=== PATIENT | male | born 2000 | race Caucasian/White ===

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

== ENCOUNTER 2019-12-19 11:51 | Observation (INO) | payer BC ==
[2019-12-19] MEDS ORDERED: SODIUM CHLORIDE 0.9% 1,000 ML IV ONE ×2 (13:05→14:43)
[2019-12-19] MEDS ORDERED: SODIUM CHLORIDE 0.9% 500 ML 500 ML IV ONE (13:05)
[2019-12-19] MEDS ORDERED: ONDANSETRON 4 MG/2 ML VIAL IVP STA (13:06)
[2019-12-19 13:07] LABS: Appearance,Urine Clear (Clear); Bilirubin,Urine Negative (Negative); Blood,Urine Trace (Negative); Color,Urine Yellow; Glucose,Urine (UA) Negative (Negative); Ketones,Urine Negative (Negative); Leukocyte Esterase,Urine Negative (Negative); Mucus,Urine Few /hpf; Nitrite,Urine Negative (Negative); Protein,Urine Trace (Negative); RBC,Urine 2 /hpf (0-5); Specific Gravity,Urine 1.028 (1.001-1.035); Urobilinogen,Urine <2.0 mg/dL (<2.0); WBC,Urine 2 /hpf (0-5)
[2019-12-19] MEDS ORDERED: SODIUM CHLORIDE 0.9% 1,000 ML IV SCH (13:15)
--- NOTE | 2019-12-19 13:45 | CT ---
EXAMINATION TYPE: CT abdomen pelvis w con DATE OF EXAM: 12/19/2019 COMPARISON: None. HISTORY: Stomach pains and right lower quadrant pain CT DLP: 777 mGycm, Automated Exposure Control for Dose Reduction was Utilized. CONTRAST: CT scan of the abdomen and pelvis is performed without oral but with IV Contrast, patient injected wi th 100 mL of Isovue 300. FINDINGS: LUNG BASES: No significant abnormality is appreciated. LIVER/GB: No significant abnormality is appreciated. PANCREAS: No significant abnormality is seen. SPLEEN: No significant abnormality is seen. ADRENALS: No significant abnormality is seen. KIDNEYS: Symmetric cortical medullary uptake and excretion without hydronephrosis seen bilaterally. BOWEL: Suboptimal evaluation without enteric contrast and patient having little intra-abdominal fat. No suspicious small or large bowel dilatation. Stomach poorly distended and thus suboptimally evaluat ed. There is low lying cecum into the right pelvis. Terminal ileum difficult to visualize with certai nty likely is present coronal image 33 with poor distention and mild to moderate wall thickening and mucosal enhancement. There is right pelvic calcification below this coronal image 40 suspicious for t iny appendicolith. Additional punctate intraluminal calcifications are felt present on sagittal image s. Poor visualization of normal or abnormal appendix on this study. There is suspicious tubular struc ture right pelvis coronal image 44 for reference posteriorly that has mild to moderate wall thickenin g and mucosal enhancement. No suspicious dilatation noted. Minimal fat stranding at this level. PROSTATE/SEMINAL VESICLES: No gross abnormality seen. LYMPH NODES: No greater than 1cm abdominal or pelvic lymph nodes are appreciated. OSSEOUS STRUCTURES: No significant abnormality is seen. OTHER: No significant additional abnormality is seen. IMPRESSION: Suboptimal study. I do favor uncomplicated acute appendicitis right pelvis as detailed ab ove.
[2019-12-19 13:48] LABS: Basophils % (A) 0 %; Eosinophils # (A) 0.1 k/uL (0-0.7); Eosinophils % (A) 1 %; HCT 42.6 % (39.0-53.0); HGB 14.6 gm/dL (13.0-17.5); Lymphocytes # (A) 0.6 k/uL (1.0-4.8); Lymphocytes % (A) 3 %; MCH 30.3 pg (25.0-35.0); MCHC 34.3 g/dL (31.0-37.0); MCV 88.3 fL (80.0-100.0); Mean Platelet Volume 7.6; Monocytes # (A) 0.7 k/uL (0-1.0); Monocytes % (A) 4 %; Neutrophils # (A) 16.3 k/uL (1.3-7.7); Neutrophils % (A) 92 %; Platelet Count 272 k/uL (150-450); RBC 4.83 m/uL (4.30-5.90); RDW 12.4 % (11.5-15.5); WBC 17.8 k/uL (4.0-11.0)
[2019-12-19] MEDS ORDERED: PIPERACILLIN-TAZOBACTAM 3.375 GM in SODIUM CHLORIDE 0.9% 100 ML IVPB STA (13:52)
--- NOTE | 2019-12-19 13:54 | ED ---
Abdominal Pain HPI <Danilo Jacome - Last Filed: 12/19/19 14:06> - General Source: patient Mode of arrival: ambulatory Limitations: no limitations <Fatou Pennington - Last Filed: 12/19/19 14:30> - General Chief Complaint: Abdominal Pain Stated Complaint: vomiting, abd pain Time Seen by Provider: 12/19/19 12:43 - History of Present Illness Initial Comments: 18yo male presented for chief complaint of right lower quadrant abdominal pain vomiting since 6AM. Patient has had vomiting since exam he was complaining of left upper quadrant abdominal pain he went to his physician's office to observed right lower quadrant tenderness on examination. Patient denies right lower quadrant tenderness initially on history taking. Patient had some mild RLQ tenderness, LUQ tenderness. Leukocytosis. CT concerning acute appendicitis. blood culturep ending. zosyn initiated. He has been NPO since 6AM. Surgery consulted Shefali saw patient in the ER and is taking patient to the OR. Patient is agreeable to procedure and admission. Dr. Jacome evaluated patient. (Fatou Pennington) - Related Data Allergies Allergy/AdvReac Type Severity Reaction Status Date / Time No Known Allergies Allergy Verified 12/19/19 12:13 Review of Systems ROS Other: All systems not noted in ROS Statement are negative. <Danilo Jacome - Last Filed: 12/19/19 14:06> ROS Other: All systems not noted in ROS Statement are negative. <Fatou Pennington - Last Filed: 12/19/19 14:30> ROS Statement: Those systems with pertinent positive or pertinent negative responses have been documented in the HPI. Past Medical History Past Medical History: No Reported History History of Any Multi-Drug Resistant Organisms: None Reported Past Surgical History: No Surgical Hx Reported Smoking Status: Never smoker Past Alcohol Use History: None Reported Past Drug Use History: None Reported <Fatou Pennington - Last Filed: 12/19/19 14:30> General Exam Limitations: no limitations <Faotu Pennington - Last Filed: 12/19/19 14:30> Course Vital Signs 12/19/19 12:08 Temperature 97.9 F Pulse Rate 50 L Respiratory 18 Rate Blood Pressure 137/77 O2 Sat by Pulse 100 Oximetry Medical Decision Making - Lab Data Result diagrams: 12/19/19 13:00 12/19/19 13:00 <Danilo Jacome - Last Filed: 12/19/19 14:06> - Lab Data Result diagrams: 12/19/19 13:00 12/19/19 13:00 <Fatou Pennington - Last Filed: 12/19/19 14:30> - Medical Decision Making Patient was reevaluated and reexamined by myself, Dr. Jacome. I do agree with PA findings. This includes diagnostic interpretation and treatment plan. Abdomen with moderate tenderness right lower quadrant. CT report reviewed. Patient and family updated. Case discussed with Dr. Meehan, who will admit for surgical call. (Danilo Jacome) - Lab Data Lab Results 12/19/19 12/19/19 12/19/19 Range/Units 12:44 13:00 13:00 WBC 17.8 H (4.0-11.0) k/uL RBC 4.83 (4.30-5.90) m/uL Hgb 14.6 (13.0-17.5) gm/dL Hct 42.6 (39.0-53.0) % MCV 88.3 (80.0-100.0) fL MCH 30.3 (25.0-35.0) pg MCHC 34.3 (31.0-37.0) g/dL RDW 12.4 (11.5-15.5) % Plt Count 272 (150-450) k/uL Neutrophils % 92 % Lymphocytes % 3 % Monocytes % 4 % Eosinophils % 1 % Basophils % 0 % Neutrophils # 16.3 H (1.3-7.7) k/uL Lymphocytes # 0.6 L (1.0-4.8) k/uL Monocytes # 0.7 (0-1.0) k/uL Eosinophils # 0.1 (0-0.7) k/uL Basophils # 0.0 (0-0.2) k/uL Sodium 139 (137-145) mmol/L Potassium 4.2 (3.5-5.1) mmol/L Chloride 103 (98-107) mmol/L Carbon Dioxide 27 (22-30) mmol/L Anion Gap 9 mmol/L BUN 15 (9-20) mg/dL Creatinine 0.80 (0.66-1.25) mg/dL Est GFR (CKD-EPI)AfAm >90 (>60 ml/min/1.73 sqM) Est GFR (CKD-EPI)NonAf >90 (>60 ml/min/1.73 sqM) Glucose 119 H (74-99) mg/dL Calcium 9.7 (8.4-10.2) mg/dL Total Bilirubin 0.8 (0.2-1.3) mg/dL AST 26 (17-59) U/L ALT 15 (4-49) U/L Alkaline Phosphatase 91 (38-126) U/L Total Protein 8.0 (6.3-8.2) g/dL Albumin 4.9 (3.5-5.0) g/dL Amylase 66 (30-110) U/L Lipase 48 (23-300) U/L Urine Color Yellow Urine Appearance Clear (Clear) Urine pH 6.0 (5.0-8.0) Ur Specific [place] 1.028 (1.001-1.035) Urine Protein Trace H (Negative) Urine Glucose (UA) Negative (Negative) Urine Ketones Negative (Negative) Urine Blood Trace H (Negative) Urine Nitrite Negative (Negative) Urine Bilirubin Negative (Negative) Urine Urobilinogen <2.0 (<2.0) mg/dL Ur Leukocyte Esterase Negative (Negative) Urine RBC 2 (0-5) /hpf Urine WBC 2 (0-5) /hpf Urine Mucus Few H (None) /hpf Disposition <Danilo Jacome - Last Filed: 12/19/19 14:06> Is patient prescribed a controlled substance at d/c from ED?: No Time of Disposition: 13:53 Decision to Admit Reason: Admit from EC Decision Date: 12/19/19 Decision Time: 13:53 <Fatou Pennington - Last Filed: 12/19/19 14:30> Clinical Impression: Abdominal pain, Acute appendicitis Disposition: [facility] Condition: Stable
[2019-12-19] MEDS ORDERED: NALOXONE 0.4 MG/ML 1 ML VIAL IV PRN ×2 (13:58→15:32)
[2019-12-19] MEDS ORDERED: MORPHINE SULFATE 4 MG/ML SYRINGE IV PRN (13:58)
[2019-12-19] MEDS ORDERED: ONDANSETRON 4 MG/2 ML VIAL IVP PRN ×2 (13:58→14:25)
[2019-12-19 14:05] LABS: African American GFR (CKD) >90 (>60 ml/min/1.73 sqM); Albumin 4.9 g/dL (3.5-5.0); Amylase 66 U/L (30-110); Anion Gap 9 mmol/L; Blood Urea Nitrogen 15 mg/dL (9-20); Calcium 9.7 mg/dL (8.4-10.2); Carbon Dioxide 27 mmol/L (22-30); Chloride 103 mmol/L (98-107); Glucose 119 mg/dL (74-99); Non-African American GFR(CKD) >90 (>60 ml/min/1.73 sqM); Potassium 4.2 mmol/L (3.5-5.1); Sodium 139 mmol/L (137-145)
[2019-12-19 14:06] LABS: ALT 15 U/L (4-49); AST 26 U/L (17-59); Alkaline Phosphatase 91 U/L (38-126); Total Bilirubin 0.8 mg/dL (0.2-1.3)
--- NOTE | 2019-12-19 14:19 | P.GSHP ---
History of Present Illness H&P Date: 12/19/19 Chief Complaint: Right lower quadrant pain Is a 18-year-old male who has a 24 hour history of right upper quadrant pain. Patient worked up emergency room was found have appendicitis Past Medical History Past Medical History: No Reported History History of Any Multi-Drug Resistant Organisms: None Reported Past Surgical History: No Surgical Hx Reported Smoking Status: Never smoker Past Alcohol Use History: None Reported Past Drug Use History: None Reported Medications and Allergies Allergies Allergy/AdvReac Type Severity Reaction Status Date / Time No Known Allergies Allergy Verified 12/19/19 12:13 Surgical - Exam Vital Signs Temp Pulse Resp BP Pulse Ox 97.9 F 50 L 18 137/77 100 12/19/19 12:08 12/19/19 12:08 12/19/19 12:08 12/19/19 12:08 12/19/19 12:08 - General well developed, well nourished, no distress - Eyes PERRL - ENT normal pinna - Neck no masses - Respiratory normal expansion - Cardiovascular Rhythm: regular - Abdomen Marked right lower quadrant tenderness Abdomen: soft Results - Labs 12/19/19 13:00 12/19/19 13:00 Abnormal Lab Results - Last 24 Hours (Table) 12/19/19 12/19/19 12/19/19 Range/Units 12:44 13:00 13:00 WBC 17.8 H (4.0-11.0) k/uL Neutrophils # 16.3 H (1.3-7.7) k/uL Lymphocytes # 0.6 L (1.0-4.8) k/uL Glucose 119 H (74-99) mg/dL Urine Protein Trace H (Negative) Urine Blood Trace H (Negative) Urine Mucus Few H (None) /hpf Diabetes panel 12/19/19 Range/Units 13:00 Sodium 139 (137-145) mmol/L Potassium 4.2 (3.5-5.1) mmol/L Chloride 103 (98-107) mmol/L Carbon Dioxide 27 (22-30) mmol/L BUN 15 (9-20) mg/dL Creatinine 0.80 (0.66-1.25) mg/dL Glucose 119 H (74-99) mg/dL Calcium 9.7 (8.4-10.2) mg/dL AST 26 (17-59) U/L ALT 15 (4-49) U/L Alkaline Phosphatase 91 (38-126) U/L Total Protein 8.0 (6.3-8.2) g/dL Albumin 4.9 (3.5-5.0) g/dL Calcium panel 12/19/19 Range/Units 13:00 Calcium 9.7 (8.4-10.2) mg/dL Albumin 4.9 (3.5-5.0) g/dL Pituitary panel 12/19/19 Range/Units 13:00 Sodium 139 (137-145) mmol/L Potassium 4.2 (3.5-5.1) mmol/L Chloride 103 (98-107) mmol/L Carbon Dioxide 27 (22-30) mmol/L BUN 15 (9-20) mg/dL Creatinine 0.80 (0.66-1.25) mg/dL Glucose 119 H (74-99) mg/dL Calcium 9.7 (8.4-10.2) mg/dL Adrenal panel 12/19/19 Range/Units 13:00 Sodium 139 (137-145) mmol/L Potassium 4.2 (3.5-5.1) mmol/L Chloride 103 (98-107) mmol/L Carbon Dioxide 27 (22-30) mmol/L BUN 15 (9-20) mg/dL Creatinine 0.80 (0.66-1.25) mg/dL Glucose 119 H (74-99) mg/dL Calcium 9.7 (8.4-10.2) mg/dL Total Bilirubin 0.8 (0.2-1.3) mg/dL AST 26 (17-59) U/L ALT 15 (4-49) U/L Alkaline Phosphatase 91 (38-126) U/L Total Protein 8.0 (6.3-8.2) g/dL Albumin 4.9 (3.5-5.0) g/dL Assessment and Plan Assessment: Hematemesis. We'll perform laparoscopic appendectomy
[2019-12-19] MEDS ORDERED: ACETAMINOPHEN TAB 325 MG TAB PO PRN (14:24)
[2019-12-19] MEDS ORDERED: GLYCOPYRROLATE 0.2 MG/ML 2 ML VIAL ONE (14:43)
[2019-12-19] MEDS ORDERED: ROCURONIUM BROMIDE 10 MG/ML 5 ML VIAL IV ONE (14:43)
[2019-12-19] MEDS ORDERED: HYDROmorphone (PF) 1 MG/ML ONE (14:43)
[2019-12-19] MEDS ORDERED: HEPARIN SODIUM,PORCINE 5,000 UNIT/ML 1 ML VIAL ONE (14:43)
[2019-12-19] MEDS ORDERED: BUPIVACAIN-EPI 0.25%-1:200,000 30 ML VIAL SQ ONE (14:43)
[2019-12-19] MEDS ORDERED: PROPOFOL 10 MG/ML 20 ML VIAL IV ONE (14:43)
[2019-12-19] MEDS ORDERED: LIDOCAINE 1% INJ 10MG/ML (20 ML MDV) ONE (14:43)
[2019-12-19] MEDS ORDERED: SUCCINYLCHOLINE CHLORIDE 100 MG/5 ML SYR IV ONE (14:43)
[2019-12-19] MEDS ORDERED: fentaNYL (PF) 50 MCG/ML 2 ML AMP ONE (14:43)
[2019-12-19] MEDS ORDERED: NEOSTIGMINE 1 MG/ML 10 ML VIAL ONE (14:43)
[2019-12-19] MEDS ORDERED: MIDAZOLAM 2 MG/2 ML VIAL ONE (14:43)
[2019-12-19] MEDS ORDERED: LACTATED RINGERS 1,000 ML IV ONE ×2 (15:07→16:00)
[2019-12-19] MEDS ORDERED: MEPERIDINE 50 MG/ML SYRINGE IVP ONE ×2 (15:27→15:46)
[2019-12-19] MEDS ORDERED: diphenhydrAMINE 50 MG/ML 1 ML VIAL IVP ONE (15:28)
[2019-12-19] MEDS ORDERED: ONDANSETRON 4 MG/2 ML VIAL IVP ONE (15:28)
[2019-12-19] MEDS ORDERED: HYDROmorphone 0.5 MG/0.5 ML SYRINGE IVP PRN (15:32)
[2019-12-19] MEDS ORDERED: HYDROcodone/APAP 5-325MG 1 EACH TAB PO PRN (15:32)
--- NOTE | 2019-12-19 15:32 | P.OP ---
Date of Procedure: 12/19/19 Preoperative Diagnosis: Acute appendicitis Postoperative Diagnosis: Acute appendicitis Procedure(s) Performed: Laparoscopic appendectomy Anesthesia: ROMELIA Surgeon: Ulysses Meehan Estimated Blood Loss (ml): 10 Pathology: other (Appendix) Condition: stable Disposition: PACU Description of Procedure: HThe patient's placed on the operating table in the supine position. The patient received general anesthesia. The abdomen was prepped and draped in the usual sterile fashion. The skin was anesthetized 1% local Xylocaine at the trocar sites. Using an 11 blade the skin was incised at the umbilicus. The umbilicus was grasped with a [place] clamp and then a Veress needle was placed into the peritoneal cavity. Position of the Veress needle was confirmed with positive drop test. After adequate insufflation a 5 mm trocar was placed into the peritoneal cavity. The abdomen was further insufflated. And then the laparoscope was placed in the peritoneal cavity. Next a 5 mm trocar was placed in the midline suprapubic position. And then a 10 mm trocar was placed in the midline epigastric position. The patient was rotated with the right side up and in Trendelenburg. The appendix was visualized. The appendix appeared to be inflamed. The appendix was grasped and then using the Harmonic scissors the mesoappendix was divided. A PDS Endoloop was then placed around the base of the appendix. And then the appendix was divided using Harmonic scissors. The appendix was placed into an Endo Catch and brought out through the 10 mm trocar site. The abdomen was irrigated. There is no bleeding seen. The trochars withdrawn. The skin was closed interrupted 3-0 Monocryl suture. Dermabond dressing was applied. Patient was sent to recovery room in stable condition.
[2019-12-19] MEDS ORDERED: HYDROmorphone 0.5 MG/0.5 ML SYRINGE IVP ONE ×2 (15:55→16:02)
[2019-12-19] MEDS: HYDROmorphone 0.5 MG/0.5 ML SYRINGE IVP PRN (18:18)
[2019-12-19] MEDS: HYDROcodone/APAP 5-325MG 1 EACH TAB PO PRN (19:41)
[2019-12-19] MEDS: PIPERACILLIN-TAZOBACTAM 3.375 GM in SODIUM CHLORIDE 0.9% 100 ML IVPB SCH (22:48)
[2019-12-20] MEDS: PIPERACILLIN-TAZOBACTAM 3.375 GM in SODIUM CHLORIDE 0.9% 100 ML IVPB SCH ×3 (05:31→21:30)
[2019-12-20] MEDS: HYDROcodone/APAP 5-325MG 1 EACH TAB PO PRN ×2 (05:32→21:30)
[2019-12-20 07:09] LABS: Basophils % (A) 0 %; Eosinophils % (A) 0 %; HCT 38.9 % (39.0-53.0); HGB 12.6 gm/dL (13.0-17.5); Lymphocytes # (A) 2.2 k/uL (1.0-4.8); Lymphocytes % (A) 14 %; MCH 28.9 pg (25.0-35.0); MCHC 32.5 g/dL (31.0-37.0); Mean Platelet Volume 7.5; Monocytes # (A) 0.7 k/uL (0-1.0); Monocytes % (A) 4 %; Neutrophils # (A) 12.4 k/uL (1.3-7.7); Neutrophils % (A) 81 %; Platelet Count 236 k/uL (150-450); RBC 4.37 m/uL (4.30-5.90); RDW 12.6 % (11.5-15.5); WBC 15.4 k/uL (4.0-11.0)
[2019-12-20] MEDS: PANTOPRAZOLE 40 MG/10 ML VIAL IVP SCH (08:30)
[2019-12-20] MEDS: ENOXAPARIN 40 MG/0.4 ML SYRINGE SQ SCH (08:30)
[2019-12-20] MEDS: HYDROmorphone 0.5 MG/0.5 ML SYRINGE IVP PRN (08:42)
--- NOTE | 2019-12-20 10:07 | P.CONS ---
History of Present Illness - Reason for Consult Consult date: 12/20/19 Medical management - History of Present Illness This is a 18-year-old male patient of Dr. Mckeon with past medical history of ADHD, chronic acne. He gives history of waking up yesterday morning with abdominal pain and vomiting. Patient had tenderness in the right lower quadrant and left lower quadrant. He was afebrile and vital signs stable. White count was 17.8 otherwise lab work was unremarkable except for glucose 119. Patient denies any history of diabetes. CAT scan of the abdomen and pelvis with contrast revealed uncomplicated acute appendicitis right pelvis. Patient subsequently was taken to or by Dr. Meehan and underwent laparoscopic appendectomy for acute appendicitis. Patient has not had no postop complications. Pain is well controlled. Patient is tolerating a regular diet with no nausea or vomiting. He is utilizing incentive spirometry. 2500 ML's. Patient is cleared for discharge from medicine. Review Of Systems: Constitutional: No fever, no chills, no night sweats. No weight change. No weakness, fatigue or lethargy. No daytime sleepiness. EENT: No headache. No blurred vision or double vision, no loss of vision. No loss of Hearing, no ringing in the ears, no dizziness. No nasal drainage or congestion. No epistaxis. No sore throat. Lungs: No shortness of breath, cough, no sputum production. No wheezing. Cardiovascular: No chest pain, no lower extremity edema. No palpitations. No paroxysmal nocturnal dyspnea. No orthopnea. No lightheadedness or dizziness. No syncopal episodes. Abdominal: Reports mild abdominal discomfort No nausea, vomiting. No diarrhea. No constipation. No bloody or tarry stools. No loss of appetite. Genitourinary: No dysuria, increased frequency, urgency. No urinary retention. Musculoskeletal: No myalgias. No muscle weakness, no gait dysfunction, no frequent falls. No back pain. No neck pain. Integumentary: No wounds, no lesions. No rash or pruritus. No unusual bruising. No change in hair or nails. Neurologic: No aphasia. No facial droop. No change in mentation. No head injury. No headache. No paralysis. No paresthesia. Psychiatric: No depression. No anxiety. No mood swings. Endocrine: No abnormal blood sugars. No weight change. No excessive sweating or thirst. No cold intolerance. Physical examination Gen: This is a 18-year-old male resting in bed in no acute ditress. HEENT: Head is atraumatic, normocephalic. Pupils equal, round. Sclerae is anicteric. NECK: Supple. No JVD. No lymphadenopathy. No thyromegaly. LUNGS: Clear to auscultation. No wheezes or rhonchi. No intercostal retractions. HEART: Regular rate and rhythm. No murmur. ABDOMEN: Soft. Bowel sounds are present. No masses. Mild generalized tenderness. Puncture site. No signs of infection. No significant drainage or erythema. EXTREMITIES: No pedal edema. No calf tenderness. Dorsalis pedis +2 bilaterally. NEUROLOGICAL: Patient is awake, alert and oriented x3. Cranial nerves 2 through 12 are grossly intact. Assessment and plan 1. Acute appendicitis status post laparoscopic appendectomy. Continue current pain management, incentive spirometry to reduce incidence of atelectasis and hospital-acquired pneumonia, increased activity, tolerating regular diet. 2. History of ADHD, stable. 3. History of acne, stable. 4. DVT prophylaxis. Lovenox. 5. GI prophylaxis. Protonix. 6. COVID-19 infection not present. Patient placed as Observation status. Discharge plan: home Impression and plan of care have been directed as dictated by the signing physician. Mary Floyd nurse practitioner acting as scribe for signing physician. Past Medical History Past Medical History: No Reported History History of Any Multi-Drug Resistant Organisms: None Reported Past Surgical History: No Surgical Hx Reported, Appendectomy Past Anesthesia/Blood Transfusion Reactions: Unable to Obtain Additional Past Anesthesia/Blood Transfusion Reaction / Comm: Pt has never had anesthesia. Smoking Status: Never smoker Additional Past Alcohol Use History / Comment(s): Marijuana or illicit drug use. Patient is a student at [employer], working on a nursing degree. He does not have any children. He is currently working at the [employer] in [place] for summer employment. - Past Family History Father Family Medical History: Diabetes Mellitus Additional Family Medical History / Comment(s): Father is alive at age 49 with history of diabetes. Mother Family Medical History: No Reported History Additional Family Medical History / Comment(s): Mother is alive at age 49 with no major medical problems. Brother(s) Additional Family Medical History / Comment(s): Patient has 1 brother and 1 sister with no major medical problems. Medications and Allergies Home Medications Medication Instructions Recorded Confirmed Type Clindamycin 1% Solution 1 applic TOPICAL BID 12/19/19 12/19/19 History Clindamycin Phosphate [place] 1% 1 applic TOPICAL BID 12/19/19 12/19/19 History Doxycycline Hyclate 100 mg PO DAILY 12/19/19 12/19/19 History Methylphenidate HCl [Concerta] 54 mg PO DAILY 12/19/19 12/19/19 History Allergies Allergy/AdvReac Type Severity Reaction Status Date / Time No Known Allergies Allergy Verified 12/19/19 14:46 Physical Exam Vitals: Vital Signs Temp Pulse Pulse Pulse Resp BP BP 12/20/19 07:00 98.9 F 12/20/19 04:25 99.1 F 77 15 108/55 12/19/19 23:16 98.0 F 68 16 116/62 12/19/19 19:15 98.3 F 72 17 105/70 12/19/19 18:12 115/59 12/19/19 18:00 65 111/53 12/19/19 17:45 83 115/61 12/19/19 17:30 52 L 108/56 12/19/19 17:15 70 108/51 12/19/19 17:01 54 L 16 119/52 12/19/19 16:42 98 F 72 16 12/19/19 16:00 53 L 16 12/19/19 15:45 60 18 12/19/19 15:30 65 18 12/19/19 15:19 97.1 F L 94 18 12/19/19 14:40 98.0 F 56 L 18 130/78 12/19/19 13:30 58 L 20 132/79 12/19/19 12:08 97.9 F 50 L 18 137/77 BP Pulse Ox 12/20/19 07:00 12/20/19 04:25 98 12/19/19 23:16 99 12/19/19 19:15 100 12/19/19 18:12 12/19/19 18:00 12/19/19 17:45 12/19/19 17:30 12/19/19 17:15 12/19/19 17:01 95 12/19/19 16:42 135/50 96 12/19/19 16:00 113/57 100 12/19/19 15:45 127/61 100 12/19/19 15:30 126/61 99 12/19/19 15:19 126/61 97 12/19/19 14:40 98 12/19/19 13:30 98 12/19/19 12:08 100 Intake and Output 12/19/19 12/20/19 12/20/19 22:59 06:59 14:59 Intake Total 1200 240 Output Total 5 Balance 1195 240 Intake: IV 200 Intake, IV Titration 1000 Amount Lactated Ringers 1,000 ml 1000 @ 125 mls/hr IV .Q8H ONE Rx#:[id number] Oral 240 Output: Estimated Blood Loss 5 Other: Voiding Method Toilet # Voids 2 3 Results CBC & Chem 7: 12/20/19 06:36 12/19/19 13:00 Labs: Abnormal Lab Results - Last 24 Hours (Table) 12/19/19 12/19/19 12/19/19 Range/Units 12:44 13:00 13:00 WBC 17.8 H (4.0-11.0) k/uL Hgb (13.0-17.5) gm/dL Hct (39.0-53.0) % Neutrophils # 16.3 H (1.3-7.7) k/uL Lymphocytes # 0.6 L (1.0-4.8) k/uL Glucose 119 H (74-99) mg/dL Urine Protein Trace H (Negative) Urine Blood Trace H (Negative) Urine Mucus Few H (None) /hpf 12/20/19 Range/Units 06:36 WBC 15.4 H (4.0-11.0) k/uL Hgb 12.6 L (13.0-17.5) gm/dL Hct 38.9 L (39.0-53.0) % Neutrophils # 12.4 H (1.3-7.7) k/uL Lymphocytes # (1.0-4.8) k/uL Glucose (74-99) mg/dL Urine Protein (Negative) Urine Blood (Negative) Urine Mucus (None) /hpf
[2019-12-20] MEDS: KETOROLAC 30 MG/ML 1 ML VIAL IVP SCH ×2 (13:28→17:30)
--- NOTE | 2019-12-20 14:33 | P.PN ---
Subjective Progress Note Date: 12/20/19 CHIEF COMPLAINT: Appendicitis HISTORY OF PRESENT ILLNESS: Patient is status post laparoscopic appendectomy. Postoperative day #1. Patient continues to report a lot of pain today. He is tolerating diet. Denies nausea or vomiting. PHYSICAL EXAM: VITAL SIGNS: Reviewed. GENERAL: Well-developed in no acute distress. HEENT: No sclera icterus. Extraocular movements grossly intact. Moist buccal mucosa. Head is atraumatic, normocephalic. ABDOMEN: Soft. Nondistended. Appropriate surgical tenderness. Surgical sites clean dry and intact NEUROLOGIC: Alert and oriented. Cranial nerves II through XII grossly intact. ASSESSMENT: 1. Acute appendicitis PLAN: -Diet as tolerated -Increase activity -Incentive spirometer -Pain control. Continue Dilaudid and [place]. Will add Toradol -Hold discharge today secondary to pain. Anticipate discharge home tomorrow if pain is better controlled Nurse practitioner note has been reviewed by physician. Signing provider agrees with the documented findings, assessment, and plan of care. Objective - Vital Signs Vital signs: Vital Signs Temp 98.2 F 12/20/19 11:57 Pulse 71 12/20/19 11:57 Resp 16 12/20/19 11:57 BP 97/58 12/20/19 11:57 Pulse Ox 99 12/20/19 11:57 Intake & Output 12/19/19 12/20/19 12/20/19 18:59 06:59 18:59 Intake Total 600 1000 240 Output Total 5 Balance 595 1000 240 Weight 83.915 kg Intake: IV 600 Intake, IV Titration 1000 Amount Lactated Ringers 1,000 ml 1000 @ 125 mls/hr IV .Q8H ONE Rx#:[id number] Oral 240 Output: Estimated Blood Loss 5 Other: Voiding Method Toilet Toilet # Voids 3 - Labs CBC & Chem 7: 12/20/19 06:36 12/19/19 13:00 Labs: Abnormal Lab Results - Last 24 Hours (Table) 12/20/19 Range/Units 06:36 WBC 15.4 H (4.0-11.0) k/uL Hgb 12.6 L (13.0-17.5) gm/dL Hct 38.9 L (39.0-53.0) % Neutrophils # 12.4 H (1.3-7.7) k/uL
[2019-12-21] MEDS: KETOROLAC 30 MG/ML 1 ML VIAL IVP SCH ×3 (00:07→11:15)
[2019-12-21 00:54] VITALS: RESP 16
[2019-12-21] MEDS: PIPERACILLIN-TAZOBACTAM 3.375 GM in SODIUM CHLORIDE 0.9% 100 ML IVPB SCH (05:33)
[2019-12-21 07:30] VITALS: BP 116/55; PULSE 74; TEMP 99.2
[2019-12-21] MEDS: PANTOPRAZOLE 40 MG/10 ML VIAL IVP SCH (07:32)
[2019-12-21] MEDS: ENOXAPARIN 40 MG/0.4 ML SYRINGE SQ SCH (07:32)
--- NOTE | 2019-12-21 09:19 | P.PN ---
Subjective Progress Note Date: 12/21/19 This is a 18-year-old male patient of Dr. Mckeon with past medical history of ADHD, chronic acne. He gives history of waking up yesterday morning with abdominal pain and vomiting. Patient had tenderness in the right lower quadrant and left lower quadrant. He was afebrile and vital signs stable. White count was 17.8 otherwise lab work was unremarkable except for glucose 119. Patient denies any history of diabetes. CAT scan of the abdomen and pelvis with contrast revealed uncomplicated acute appendicitis right pelvis. Patient subsequently was taken to or by Dr. Meehan and underwent laparoscopic appendectomy for acute appendicitis. Patient has not had no postop complications. Pain is well controlled. Patient is tolerating a regular diet with no nausea or vomiting. He is utilizing incentive spirometry. 2500 ML's. Patient is cleared for discharge from medicine. 12/20: Patient states that he had difficulty with pain control yesterday but this is much improved this morning. He is tolerating a diet and had a bowel movement. Abdomen remained soft. He has been afebrile, heart rate 74, blood pressure 116/55, pulse ox 97% on room air. Anticipate discharge home after e valuated by Dr. Meehan. Review Of Systems: Constitutional: No fever, no chills, no night sweats. No weight change. No weakness, fatigue or lethargy. No daytime sleepiness. EENT: No headache. No nasal drainage or congestion. No epistaxis. No sore throat. Lungs: No shortness of breath, cough, no sputum production. No wheezing. Cardiovascular: No chest pain, no lower extremity edema. No palpitations. No paroxysmal nocturnal dyspnea. No orthopnea. No lightheadedness or dizziness. No syncopal episodes. Abdominal: Reports mild abdominal discomfort .No nausea, vomiting. No diarrhea. No constipation. No bloody or tarry stools. No loss of appetite. Genitourinary: No dysuria, increased frequency, urgency. No urinary retention. Musculoskeletal: No myalgias. No muscle weakness, no gait dysfunction, no frequent falls. No back pain. No neck pain. Integumentary: No wounds, no lesions. No rash or pruritus. No unusual bruising. No change in hair or nails. Neurologic: No aphasia. No facial droop. No change in mentation. No head injury. No headache. No paralysis. No paresthesia. Psychiatric: No depression. No anxiety. No mood swings. Endocrine: No abnormal blood sugars. No weight change. No excessive sweating or thirst. No cold intolerance. Physical examination Gen: This is a 18-year-old male resting in bed in no acute ditress. HEENT: Head is atraumatic, normocephalic. Pupils equal, round. Sclerae is anicteric. NECK: Supple. No JVD. No lymphadenopathy. No thyromegaly. LUNGS: Clear to auscultation. No wheezes or rhonchi. No intercostal retractions. HEART: Regular rate and rhythm. No murmur. ABDOMEN: Soft. Bowel sounds are present. No masses. Mild generalized tenderness. Puncture sites show no signs of infection. No significant drainage or erythema. EXTREMITIES: No pedal edema. No calf tenderness. Dorsalis pedis +2 bilaterally. NEUROLOGICAL: Patient is awake, alert and oriented x3. Cranial nerves 2 through 12 are grossly intact. Assessment and plan 1. Acute appendicitis status post laparoscopic appendectomy. Continue current pain management, incentive spirometry to reduce incidence of atelectasis and hospital-acquired pneumonia, increased activity, tolerating regular diet. 2. History of ADHD, stable. 3. History of acne, stable. 4. DVT prophylaxis. Lovenox. 5. GI prophylaxis. Protonix. 6. COVID-19 infection not present. Patient placed as Observation status. Discharge plan: home Impression and plan of care have been directed as dictated by the signing physician. Mary Floyd nurse practitioner acting as scribe for signing physician. Objective - Vital Signs Vital signs: Vital Signs Temp 99.2 F 12/21/19 07:29 Pulse 74 12/21/19 07:29 Resp 16 12/21/19 07:29 BP 116/55 12/21/19 07:29 Pulse Ox 97 12/21/19 07:29 Intake & Output 12/20/19 12/21/19 12/21/19 18:59 06:59 18:59 Intake Total 240 1230 Balance 240 1230 Intake: Oral 240 1230 Other: Voiding Method Toilet Toilet # Voids 2 1 - Labs CBC & Chem 7: 12/20/19 06:36 12/19/19 13:00 Labs: Microbiology - Last 24 Hours (Table) 12/19/19 14:30 Blood Culture - Preliminary Blood No Growth after 24 hours
--- NOTE | 2019-12-21 10:35 | P.DS ---
Providers Date of admission: 12/19/19 14:06 Expected date of discharge: 12/21/19 Attending physician: Ulysses Meehan Consults: 12/19/19 14:22 Consult Physician Routine Consulting Provider: Kenji Merino Reason/Comments: medical management Do you want consulting provider notified?: Yes Primary care physician: Monico Mckeon [facility] Course: 18-year-old male who presented to the emergency room with a chief complaint of abdominal pain. Patient was found to have acute appendicitis. He underwent laparoscopic appendectomy. Patient is doing well postoperatively without any immediate complications. His pain is controlled on oral medications. Tolerating diet without nausea or vomiting. Vital signs are stable. He is stable for discharge home today. Please see EMR for further hospital course details. Discharge Diagnosis: 1. Acute appendicitis Nurse practitioner note has been reviewed by physician. Signing provider agrees with the documented findings, assessment, and plan of care. Patient Condition at Discharge: Stable Plan - Discharge Summary Discharge Rx Participant: No New Discharge Prescriptions: No Action Methylphenidate HCl [Concerta] 54 mg PO DAILY Doxycycline Hyclate 100 mg PO DAILY Clindamycin 1% Solution 1 applic TOPICAL BID Clindamycin Phosphate P[place] 1% 1 applic TOPICAL BID Discharge Medication List Clindamycin 1% Solution 1 applic TOPICAL BID 12/19/19 [History] Clindamycin Phosphate [place] 1% 1 applic TOPICAL BID 12/19/19 [History] Doxycycline Hyclate 100 mg PO DAILY 12/19/19 [History] Methylphenidate HCl [Concerta] 54 mg PO DAILY 12/19/19 [History] Follow up Appointment(s)/Referral(s): Monico Mckeon DO [Primary Care Provider] - 1-2 days
== END 2019-12-21 12:00 | disposition home or self-care (01) ==
LOC: EC 11:51 → 1SOBS 14:06
PROVIDERS: ADMIT Surgery; ATTEND Surgery
DX: K35.80 Unspecified acute appendicitis (principal); F90.9 Attention-deficit hyperactivity disorder, unspecified type; L70.9 Acne, unspecified; Z79.2 Long term (current) use of antibiotics; Z79.899 Other long term (current) drug therapy; Z83.3 Family history of diabetes mellitus
CPT/HCPCS: 96374; 99285; 36415; 88304; 80053; 82150; 83690; 85025 ×2; 81001; 87040; 74177; 44970; G0378 ×3; U0003; J2543 ×3; J2250; J2270; J1200; J1644; J2710; J2175; J2405; J2001; J1650 ×2; J3010; J1885 ×2; J1170 ×3; J0330; J2704; C9113 ×2; Q9967

== ENCOUNTER 2019-12-21 17:17 | Inpatient (IN) | payer BC ==
[2019-12-21] MEDS ORDERED: ACETAMINOPHEN TAB 500 MG TAB PO STA (17:38)
[2019-12-21] MEDS ORDERED: SODIUM CHLORIDE 0.9% 1,000 ML IV STA ×2 (17:38)
[2019-12-21] MEDS ORDERED: KETOROLAC 30 MG/ML 1 ML VIAL IVP STA (17:43)
[2019-12-21] MEDS ORDERED: PIPERACILLIN-TAZOBACTAM 3.375 GM in SODIUM CHLORIDE 0.9% 100 ML IVPB STA (17:59)
--- NOTE | 2019-12-21 18:08 | ED ---
Fever HPI <Lonnie Ohara - Last Filed: 12/21/19 19:44> - General Source: patient, RN notes reviewed, old records reviewed Mode of arrival: ambulatory Limitations: no limitations <Jaylyn Marrufo - Last Filed: 12/21/19 19:47> <Lonnie Marc - Last Filed: 12/21/19 22:24> - General Chief Complaint: Fever Stated Complaint: Post op fever Time Seen by Provider: 12/21/19 17:28 - History of Present Illness Initial Comments: Savage is a 18-year-old male presents the emergency department today with com plaints of fever and abdominal pain. Patient is 2 days postoperative for appendectomy by Dr. Gomez. Patient was discharged home this morning. He reports he was playing on the couch resting watching TV when he woke up with a high fever. He did take Motrin prior to arrival. Denies any chest pain or shortness of breath. He states that he did not have a Yepez catheter placed. (Jaylyn Marrufo) - Related Data Home Medications Medication Instructions Recorded Confirmed Clindamycin 1% Solution 1 applic TOPICAL BID 12/19/19 12/21/19 Clindamycin Phosphate Pledgets 1% 1 applic TOPICAL BID 12/19/19 12/21/19 Doxycycline Hyclate 100 mg PO DAILY 12/19/19 12/21/19 Methylphenidate HCl [Concerta] 54 mg PO DAILY 12/19/19 12/21/19 Previous Rx's Medication Instructions Recorded Hydrocodone/Acetaminophen [[place] 1 tab PO Q6HR PRN #10 tab 12/21/19 5-325] Levofloxacin [Levaquin] 750 mg PO DAILY 7 Days #7 tab 12/21/19 metroNIDAZOLE [Flagyl] 500 mg PO TID #21 tab 12/21/19 Allergies Allergy/AdvReac Type Severity Reaction Status Date / Time No Known Allergies Allergy Verified 12/21/19 17:43 Review of Systems ROS Other: All systems not noted in ROS Statement are negative. <Lonnie Ohara - Last Filed: 12/21/19 19:44> ROS Other: All systems not noted in ROS Statement are negative. <Jaylyn Marrufo - Last Filed: 12/21/19 19:47> ROS Other: All systems not noted in ROS Statement are negative. <Lonnie Marc - Last Filed: 12/21/19 22:24> ROS Statement: Those systems with pertinent positive or pertinent negative responses have been documented in the HPI. Past Medical History Past Medical History: No Reported History History of Any Multi-Drug Resistant Organisms: None Reported Past Surgical History: No Surgical Hx Reported, Appendectomy Past Anesthesia/Blood Transfusion Reactions: Unable to Obtain Additional Past Anesthesia/Blood Transfusion Reaction / Comment(s): Pt has never had anesthesia. Past Psychological History: ADD/ADHD Smoking Status: Never smoker Past Alcohol Use History: None Reported Past Drug Use History: None Reported - Past Family History Father Family Medical History: Diabetes Mellitus Additional Family Medical History / Comment(s): Father is alive at age 49 with history of diabetes. Mother Family Medical History: No Reported History Additional Family Medical History / Comment(s): Mother is alive at age 49 with no major medical problems. Brother(s) Additional Family Medical History / Comment(s): Patient has 1 brother and 1 sister with no major medical problems. <Jaylyn Marrufo - Last Filed: 12/21/19 19:47> General Exam Limitations: no limitations General appearance: alert, in no apparent distress Head exam: Present: atraumatic, normocephalic, normal inspection Eye exam: Present: normal appearance, PERRL, EOMI. Absent: scleral icterus, conjunctival injection, periorbital swelling ENT exam: Present: normal exam, mucous membranes moist Neck exam: Present: normal inspection. Absent: tenderness, meningismus, lymphadenopathy Respiratory exam: Present: normal lung sounds bilaterally. Absent: respiratory distress, wheezes, rales, rhonchi, stridor Cardiovascular Exam: Present: regular rate, normal rhythm, normal heart sounds. Absent: systolic murmur, diastolic murmur, rubs, gallop, clicks GI/Abdominal exam: Present: soft, normal bowel sounds, other (Well-appearing midline incision site.). Absent: distended, tenderness, guarding, rebound, rigid Extremities exam: Present: normal inspection, full ROM, normal capillary refill. Absent: tenderness, pedal edema, joint swelling, calf tenderness Back exam: Present: normal inspection Neurological exam: Present: alert, oriented X3, CN II-XII intact Psychiatric exam: Present: normal affect, normal mood Skin exam: Present: warm, dry, intact, normal color. Absent: rash <Jaylyn Marrufo - Last Filed: 12/21/19 19:47> - General Exam Comments Initial Comments: 18-year-old male. Patient appears in moderate discomfort. (Jaylyn Marrufo) Course <Lonnie Ohara - Last Filed: 12/21/19 19:44> <Lonnie Marc - Last Filed: 12/21/19 22:24> Vital Signs 12/21/19 12/21/19 12/21/19 17:21 17:32 19:59 Temperature 102.8 F H 102.8 F H 99.6 F Pulse Rate 102 H 73 Respiratory 20 18 Rate Blood Pressure 102/63 119/73 O2 Sat by Pulse 97 97 Oximetry - Reevaluation(s) Reevaluation #1: 12/21/19 19:[address] Meehan, patient has an improving white blood cell count, stable hemoglobin, CT negative for abscess or inflammatory change. Patient has a negative urine, negative chest x-ray for focal pneumonia. Dr. Meehan recommends discharge with close outpatient follow-up, will see the patient in his office tomorrow. Recommends Flagyl and Levaquin. (Lonnie Ohara) Reevaluation #2: 12/21/19 21:36 The patient was initiated be discharged with follow-up with Dr. Meehan's office tomorrow. Lab reports were obtained however subsequent to that conversation which did show the patient had hypocalcemia hypomagnesemia hypokalemia. After discussion with Dr. Meehan and with Dr. Merino patient will be admitted with replenishment of the above pathology pending on the patient's appendectomy. (Lonnie Marc) Reevaluation #3: 12/21/19 22:24 EKG done patient shows a sinus bradycardia with a sinus arrhythmia the rate was 50. Interval 150 to QRS 90 QT since QTC 4:30/392. No acute ST-T wave changes (Lonnie Marc) Medical Decision Making - Lab Data Result diagrams: 12/21/19 18:31 <Lonnie Ohara - Last Filed: 12/21/19 19:44> - Lab Data Result diagrams: 12/21/19 18:31 - Radiology Data Radiology results: report reviewed <Jaylyn Marrufo - Last Filed: 12/21/19 19:47> - Lab Data Result diagrams: 12/21/19 18:31 12/21/19 19:28 <Lonnie Marc - Last Filed: 12/21/19 22:24> - Medical Decision Making 18-year-old male presents emergency Department today with complaints of a fever 103 2 days post appendectomy. Patient denies any significant pain except mild headache. He does report some postoperative abdominal pain but seems stable since he had a surgery. Is given IV fluids labwork obtained. CBC shows decreased at WBC to 10. CT on pelvis is completed shows no acute intra- abdominal abnormalities relief or fever. Chest x-ray shows no pneumonia. He denies any chest pain or shortness of breath. No lower extremity swelling. I did initially start the Patient on Zosyn and blood cultures were obtained. I discussed case with Dr. Ohara who also examined the Patient. He discussed the Patient case with his surgeon Dr. Meehan. Dr. Meehan wants to start patient on levaquin and flagyl and to follow up with him in the office tomorrow. Given dose in ED. (Jaylyn Marrufo) - Lab Data Lab Results 12/21/19 12/21/19 12/21/19 Range/Units 18:31 18:31 18:31 WBC 10.4 (4.0-11.0) k/uL RBC 3.94 L (4.30-5.90) m/uL Hgb 11.8 L (13.0-17.5) gm/dL Hct 34.2 L (39.0-53.0) % MCV 86.9 (80.0-100.0) fL MCH 30.0 (25.0-35.0) pg MCHC 34.5 (31.0-37.0) g/dL RDW 14.1 (11.5-15.5) % Plt Count 297 (150-450) k/uL Neutrophils % (Manual) 77 % Lymphocytes % (Manual) 16 % Monocytes % (Manual) 7 % Neutrophils # (Manual) 8.01 H (1.3-7.7) k/uL Lymphocytes # (Manual) 1.66 (1.0-4.8) k/uL Monocytes # (Manual) 0.73 (0-1.0) k/uL Nucleated RBCs 0 (0-0) /100 WBC Manual Slide Review Performed Hypochromasia Moderate Poikilocytosis Moderate PT 14.0 H (9.0-12.0) sec INR 1.4 H (<1.2) APTT 38.4 H (22.0-30.0) sec Sodium (137-145) mmol/L Potassium (3.5-5.1) mmol/L Chloride (98-107) mmol/L Carbon Dioxide (22-30) mmol/L Anion Gap mmol/L BUN (9-20) mg/dL Creatinine (0.66-1.25) mg/dL Est GFR (CKD-EPI)AfAm (>60 ml/min/1.73 sqM) Est GFR (CKD-EPI)NonAf (>60 ml/min/1.73 sqM) Glucose (74-99) mg/dL POC Glucose (mg/dL) (75-99) mg/dL POC Glu Director Learning Services ID Plasma Lactic Acid Olivier 0.7 (0.7-2.0) mmol/L Calcium (8.4-10.2) mg/dL Magnesium (1.6-2.3) mg/dL Total Bilirubin (0.2-1.3) mg/dL AST (17-59) U/L ALT (4-49) U/L Alkaline Phosphatase (38-126) U/L Total Protein (6.3-8.2) g/dL Albumin (3.5-5.0) g/dL Urine Color Urine Appearance (Clear) Urine pH (5.0-8.0) Ur Specific [place] (1.001-1.035) Urine Protein (Negative) Urine Glucose (UA) (Negative) Urine Ketones (Negative) Urine Blood (Negative) Urine Nitrite (Negative) Urine Bilirubin (Negative) Urine Urobilinogen (<2.0) mg/dL Ur Leukocyte Esterase (Negative) Urine RBC (0-5) /hpf Urine WBC (0-5) /hpf Urine Mucus (None) /hpf 12/21/19 12/21/19 12/21/19 Range/Units 18:31 18:40 19:28 WBC (4.0-11.0) k/uL RBC (4.30-5.90) m/uL Hgb (13.0-17.5) gm/dL Hct (39.0-53.0) % MCV (80.0-100.0) fL MCH (25.0-35.0) pg MCHC (31.0-37.0) g/dL RDW (11.5-15.5) % Plt Count (150-450) k/uL Neutrophils % (Manual) % Lymphocytes % (Manual) % Monocytes % (Manual) % Neutrophils # (Manual) (1.3-7.7) k/uL Lymphocytes # (Manual) (1.0-4.8) k/uL Monocytes # (Manual) (0-1.0) k/uL Nucleated RBCs (0-0) /100 WBC Manual Slide Review Hypochromasia Poikilocytosis PT (9.0-12.0) sec INR (<1.2) APTT (22.0-30.0) sec Sodium 142 (137-145) mmol/L Potassium 2.3 L* (3.5-5.1) mmol/L Chloride 116 H (98-107) mmol/L Carbon Dioxide 18 L (22-30) mmol/L Anion Gap 8 mmol/L BUN 5 L (9-20) mg/dL Creatinine 0.56 L (0.66-1.25) mg/dL Est GFR (CKD-EPI)AfAm >90 (>60 ml/min/1.73 sqM) Est GFR (CKD-EPI)NonAf >90 (>60 ml/min/1.73 sqM) Glucose 63 L (74-99) mg/dL POC Glucose (mg/dL) (75-99) mg/dL POC Glu Director Learning Services ID Plasma Lactic Acid Olivier (0.7-2.0) mmol/L Calcium 5.7 L* (8.4-10.2) mg/dL Magnesium 1.3 L (1.6-2.3) mg/dL Total Bilirubin 0.7 (0.2-1.3) mg/dL AST 14 L (17-59) U/L ALT 7 (4-49) U/L Alkaline Phosphatase 39 (38-126) U/L Total Protein 4.4 L (6.3-8.2) g/dL Albumin 2.1 L (3.5-5.0) g/dL Urine Color Yellow Urine Appearance Clear (Clear) Urine pH 5.5 (5.0-8.0) Ur Specific [place] 1.013 (1.001-1.035) Urine Protein Trace H (Negative) Urine Glucose (UA) Negative (Negative) Urine Ketones 2+ H (Negative) Urine Blood Small H (Negative) Urine Nitrite Negative (Negative) Urine Bilirubin Negative (Negative) Urine Urobilinogen <2.0 (<2.0) mg/dL Ur Leukocyte Esterase Negative (Negative) Urine RBC 2 (0-5) /hpf Urine WBC 2 (0-5) /hpf Urine Mucus Rare H (None) /hpf 12/21/19 Range/Units 20:25 WBC (4.0-11.0) k/uL RBC (4.30-5.90) m/uL Hgb (13.0-17.5) gm/dL Hct (39.0-53.0) % MCV (80.0-100.0) fL MCH (25.0-35.0) pg MCHC (31.0-37.0) g/dL RDW (11.5-15.5) % Plt Count (150-450) k/uL Neutrophils % (Manual) % Lymphocytes % (Manual) % Monocytes % (Manual) % Neutrophils # (Manual) (1.3-7.7) k/uL Lymphocytes # (Manual) (1.0-4.8) k/uL Monocytes # (Manual) (0-1.0) k/uL Nucleated RBCs (0-0) /100 WBC Manual Slide Review Hypochromasia Poikilocytosis PT (9.0-12.0) sec INR (<1.2) APTT (22.0-30.0) sec Sodium (137-145) mmol/L Potassium (3.5-5.1) mmol/L Chloride (98-107) mmol/L Carbon Dioxide (22-30) mmol/L Anion Gap mmol/L BUN (9-20) mg/dL Creatinine (0.66-1.25) mg/dL Est GFR (CKD-EPI)AfAm (>60 ml/min/1.73 sqM) Est GFR (CKD-EPI)NonAf (>60 ml/min/1.73 sqM) Glucose (74-99) mg/dL POC Glucose (mg/dL) 94 (75-99) mg/dL POC Glu Director Learning Services ID Garrett Michael Plasma Lactic Acid Olivier (0.7-2.0) mmol/L Calcium (8.4-10.2) mg/dL Magnesium (1.6-2.3) mg/dL Total Bilirubin (0.2-1.3) mg/dL AST (17-59) U/L ALT (4-49) U/L Alkaline Phosphatase (38-126) U/L Total Protein (6.3-8.2) g/dL Albumin (3.5-5.0) g/dL Urine Color Urine Appearance (Clear) Urine pH (5.0-8.0) Ur Specific [place] (1.001-1.035) Urine Protein (Negative) Urine Glucose (UA) (Negative) Urine Ketones (Negative) Urine Blood (Negative) Urine Nitrite (Negative) Urine Bilirubin (Negative) Urine Urobilinogen (<2.0) mg/dL Ur Leukocyte Esterase (Negative) Urine RBC (0-5) /hpf Urine WBC (0-5) /hpf Urine Mucus (None) /hpf 12/21/19 18:56 EKG performed at 1837 shows normal sinus rhythm with sinus normal EKG. Ventricular rate of 82 bpm. Intervals 166 most seconds. Frustration is 92 ms. QT QTc is 3:30/394 ms. (Jaylyn Marrufo) - Radiology Data Computed tomography scan shows no acute or new finding to account for patient's symptoms of fever. Chest x-ray shows no acute suspicious infiltrate. (Jaylyn Marrufo) Disposition <Lonnie Ohara - Last Filed: 12/21/19 19:44> Is patient prescribed a controlled substance at d/c from ED?: No Time of Disposition: 19:51 <Jaylyn Marrufo - Last Filed: 12/21/19 19:47> <Lonnie Marc - Last Filed: 12/21/19 22:24> Clinical Impression: Postsurgical fever, Hypocalcemia, Hypokalemia, Hypoalbuminemia Disposition: HOME SELF-CARE Condition: Stable
[2019-12-21 18:51] LABS: Appearance,Urine Clear (Clear); Bilirubin,Urine Negative (Negative); Blood,Urine Small (Negative); Color,Urine Yellow; Glucose,Urine (UA) Negative (Negative); Ketones,Urine 2+ (Negative); Leukocyte Esterase,Urine Negative (Negative); Mucus,Urine Rare /hpf; Nitrite,Urine Negative (Negative); PH, Urine 5.5 (5.0-8.0); Protein,Urine Trace (Negative); RBC,Urine 2 /hpf (0-5); Specific Gravity,Urine 1.013 (1.001-1.035); Urobilinogen,Urine <2.0 mg/dL (<2.0); WBC,Urine 2 /hpf (0-5)
[2019-12-21 19:05] LABS: INR 1.4 (<1.2); Partial Thromboplastin Time 38.4 sec (22.0-30.0)
[2019-12-21 19:09] LABS: HCT 34.2 % (39.0-53.0); HGB 11.8 gm/dL (13.0-17.5); Hypochromasia Moderate; MCHC 34.5 g/dL (31.0-37.0); MCV 86.9 fL (80.0-100.0); Platelet Count 297 k/uL (150-450); Poikilocytosis Moderate; RBC 3.94 m/uL (4.30-5.90); RDW 14.1 % (11.5-15.5); WBC 10.4 k/uL (4.0-11.0)
--- NOTE | 2019-12-21 19:20 | XR ---
EXAMINATION TYPE: XR chest 2V DATE OF EXAM: 12/21/2019 COMPARISON: NONE HISTORY: Fever after appendectomy 2 days ago. TECHNIQUE: Frontal and lateral views of the chest are obtained. FINDINGS: There is no focal air space opacity, pleural effusion, or pneumothorax seen. The cardiac silhouette size is within normal limits. The osseous structures are intact. Small amount of pneumop eritoneum below right hemidiaphragm consistent with recent abdominal surgery noted. IMPRESSION: No suspicious acute infiltrate.
--- NOTE | 2019-12-21 19:24 | CT ---
EXAMINATION TYPE: CT abdomen pelvis w con DATE OF EXAM: 12/21/2019 COMPARISON: CT abdomen and pelvis 2 days ago HISTORY: Appendectomy 2 [address] Fever today. [address] DLP: 825 mGycm, Automated Exposure Control for Dose Reduction was Utilized. CONTRAST: CT scan of the abdomen and pelvis is performed without oral and with IV Contrast, patient injected wi th 100 mL of Isovue 300. FINDINGS: LUNG BASES: New dependent atelectasis in both bases just above diaphragm.. LIVER/GB: No significant abnormality is appreciated. PANCREAS: No significant abnormality is seen. SPLEEN: No significant abnormality is seen. ADRENALS: No significant abnormality is seen. KIDNEYS: No significant abnormality is seen. BOWEL: Suboptimal evaluation of bowel without enteric contrast. No new small lower large bowel dilata tion. Low lying cecum into the right pelvis redemonstrated. Terminal ileum within normal limits coron al image 30. No new definitive well-formed thick-walled fluid collection to suggest drainable abscess . PROSTATE/SEMINAL VESICLES: No gross abnormality seen. LYMPH NODES: No greater than 1cm abdominal or pelvic lymph nodes are appreciated. Stable prominent s ubcentimeter reactive right lower quadrant mesenteric lymph nodes reference coronal image 36. OSSEOUS STRUCTURES: Spine is straightened on the sagittal images. OTHER: Small amount of air and tiny hematoma anterior abdominal wall axial image 36 for reference abo ve the umbilicus. Small amount of pneumoperitoneum anterior to the liver presumed postsurgical. IMPRESSION: No significant new or acute finding is seen to account for patient's clinical symptoms.
[2019-12-21] MEDS ORDERED: LEVOFLOXACIN 750 MG TAB PO STA (19:52)
[2019-12-21] MEDS ORDERED: metroNIDAZOLE 500 MG TAB PO STA (19:52)
[2019-12-21 19:57] LABS: ALT 7 U/L (4-49); AST 14 U/L (17-59); African American GFR (CKD) >90 (>60 ml/min/1.73 sqM); Albumin 2.1 g/dL (3.5-5.0); Alkaline Phosphatase 39 U/L (38-126); Anion Gap 8 mmol/L; Blood Urea Nitrogen 5 mg/dL (9-20); Carbon Dioxide 18 mmol/L (22-30); Chloride 116 mmol/L (98-107); Glucose 63 mg/dL (74-99); Non-African American GFR(CKD) >90 (>60 ml/min/1.73 sqM); Sodium 142 mmol/L (137-145); Total Bilirubin 0.7 mg/dL (0.2-1.3); Total Protein 4.4 g/dL (6.3-8.2)
[2019-12-21 20:08] LABS: Calcium 5.7 mg/dL (8.4-10.2); Potassium 2.3 mmol/L (3.5-5.1)
[2019-12-21] MEDS ORDERED: POTASSIUM CHLORIDE ER 20 MEQ TAB.ER PO STA (20:19)
[2019-12-21 20:27] LABS: Glucose,Whole Blood 94 mg/dL (75-99)
[2019-12-21] MEDS ORDERED: SODIUM CHLORIDE 0.9% 1,000 ML IV ONE (20:33)
[2019-12-21] MEDS ORDERED: Potassium Replacement Protocol 1 EACH MISC MISCELLANE PRN (20:34)
[2019-12-21] MEDS ORDERED: metroNIDAZOLE-NS PMX 500 MG in SALINE 1 100ML.BAG IVPB STA (20:36)
[2019-12-21 20:39] LABS: Lymphocytes # (M) 1.66 k/uL (1.0-4.8); Monocytes # (M) 0.73 k/uL (0-1.0); Neutrophils # (M) 8.01 k/uL (1.3-7.7); Neutrophils % (M) 77 %; Nucleated Red Blood Cells 0 /100 WBC (0-0); Total Cells Counted 100
[2019-12-21] MEDS ORDERED: ONDANSETRON 4 MG/2 ML VIAL IVP PRN (20:54)
[2019-12-21] MEDS ORDERED: NALOXONE 0.4 MG/ML 1 ML VIAL IV PRN (20:54)
[2019-12-21] MEDS ORDERED: IBUPROFEN 400 MG TAB PO PRN (20:54)
[2019-12-21] MEDS ORDERED: KETOROLAC 30 MG/ML 1 ML VIAL IVP PRN (20:54)
[2019-12-21] MEDS ORDERED: ACETAMINOPHEN TAB 325 MG TAB PO PRN (20:54)
[2019-12-21] MEDS ORDERED: MORPHINE SULFATE 4 MG/ML SYRINGE IV PRN (20:54)
--- NOTE | 2019-12-21 20:54 | ED ---
Medical Decision Making - Medical Decision Making Addendum places Patient was initially to be discharged however his chemistry cannot panel was resulted and shows significant electrolyte abnormalities with low potassium and magnesium and albumin. Discussed with Dr. Marc discussed with Dr. Merino. Patient received IV potassium IV magnesium, and we'll replace albumin. Continuing Flagyl and Zosyn. Patient is to be admitted to medicine with consults to Dr. Meehan. - Lab Data Result diagrams: 12/21/19 18:31 12/21/19 19:28 Lab Results 12/21/19 12/21/19 12/21/19 Range/Units 18:31 18:31 18:31 WBC 10.4 (4.0-11.0) k/uL RBC 3.94 L (4.30-5.90) m/uL Hgb 11.8 L (13.0-17.5) gm/dL Hct 34.2 L (39.0-53.0) % MCV 86.9 (80.0-100.0) fL MCH 30.0 (25.0-35.0) pg MCHC 34.5 (31.0-37.0) g/dL RDW 14.1 (11.5-15.5) % Plt Count 297 (150-450) k/uL Neutrophils % (Manual) 77 % Lymphocytes % (Manual) 16 % Monocytes % (Manual) 7 % Neutrophils # (Manual) 8.01 H (1.3-7.7) k/uL Lymphocytes # (Manual) 1.66 (1.0-4.8) k/uL Monocytes # (Manual) 0.73 (0-1.0) k/uL Nucleated RBCs 0 (0-0) /100 WBC Manual Slide Review Performed Hypochromasia Moderate Poikilocytosis Moderate PT 14.0 H (9.0-12.0) sec INR 1.4 H (<1.2) APTT 38.4 H (22.0-30.0) sec Sodium (137-145) mmol/L Potassium (3.5-5.1) mmol/L Chloride (98-107) mmol/L Carbon Dioxide (22-30) mmol/L Anion Gap mmol/L BUN (9-20) mg/dL Creatinine (0.66-1.25) mg/dL Est GFR (CKD-EPI)AfAm (>60 ml/min/1.73 sqM) Est GFR (CKD-EPI)NonAf (>60 ml/min/1.73 sqM) Glucose (74-99) mg/dL POC Glucose (mg/dL) (75-99) mg/dL POC Glu [employer]er ID Plasma Lactic Acid Olivier 0.7 (0.7-2.0) mmol/L Calcium (8.4-10.2) mg/dL Magnesium (1.6-2.3) mg/dL Total Bilirubin (0.2-1.3) mg/dL AST (17-59) U/L ALT (4-49) U/L Alkaline Phosphatase (38-126) U/L Total Protein (6.3-8.2) g/dL Albumin (3.5-5.0) g/dL Urine Color Urine Appearance (Clear) Urine pH (5.0-8.0) Ur Specific [place] (1.001-1.035) Urine Protein (Negative) Urine Glucose (UA) (Negative) Urine Ketones (Negative) Urine Blood (Negative) Urine Nitrite (Negative) Urine Bilirubin (Negative) Urine Urobilinogen (<2.0) mg/dL Ur Leukocyte Esterase (Negative) Urine RBC (0-5) /hpf Urine WBC (0-5) /hpf Urine Mucus (None) /hpf 12/21/19 12/21/19 12/21/19 Range/Units 18:31 18:40 19:28 WBC (4.0-11.0) k/uL RBC (4.30-5.90) m/uL Hgb (13.0-17.5) gm/dL Hct (39.0-53.0) % MCV (80.0-100.0) fL MCH (25.0-35.0) pg MCHC (31.0-37.0) g/dL RDW (11.5-15.5) % Plt Count (150-450) k/uL Neutrophils % (Manual) % Lymphocytes % (Manual) % Monocytes % (Manual) % Neutrophils # (Manual) (1.3-7.7) k/uL Lymphocytes # (Manual) (1.0-4.8) k/uL Monocytes # (Manual) (0-1.0) k/uL Nucleated RBCs (0-0) /100 WBC Manual Slide Review Hypochromasia Poikilocytosis PT (9.0-12.0) sec INR (<1.2) APTT (22.0-30.0) sec Sodium 142 (137-145) mmol/L Potassium 2.3 L* (3.5-5.1) mmol/L Chloride 116 H (98-107) mmol/L Carbon Dioxide 18 L (22-30) mmol/L Anion Gap 8 mmol/L BUN 5 L (9-20) mg/dL Creatinine 0.56 L (0.66-1.25) mg/dL Est GFR (CKD-EPI)AfAm >90 (>60 ml/min/1.73 sqM) Est GFR (CKD-EPI)NonAf >90 (>60 ml/min/1.73 sqM) Glucose 63 L (74-99) mg/dL POC Glucose (mg/dL) (75-99) mg/dL POC Glu [employer] Signal Designer ID Plasma Lactic Acid Olivier (0.7-2.0) mmol/L Calcium 5.7 L* (8.4-10.2) mg/dL Magnesium 1.3 L (1.6-2.3) mg/dL Total Bilirubin 0.7 (0.2-1.3) mg/dL AST 14 L (17-59) U/L ALT 7 (4-49) U/L Alkaline Phosphatase 39 (38-126) U/L Total Protein 4.4 L (6.3-8.2) g/dL Albumin 2.1 L (3.5-5.0) g/dL Urine Color Yellow Urine Appearance Clear (Clear) Urine pH 5.5 (5.0-8.0) Ur Specific [place] 1.013 (1.001-1.035) Urine Protein Trace H (Negative) Urine Glucose (UA) Negative (Negative) Urine Ketones 2+ H (Negative) Urine Blood Small H (Negative) Urine Nitrite Negative (Negative) Urine Bilirubin Negative (Negative) Urine Urobilinogen <2.0 (<2.0) mg/dL Ur Leukocyte Esterase Negative (Negative) Urine RBC 2 (0-5) /hpf Urine WBC 2 (0-5) /hpf Urine Mucus Rare H (None) /hpf 12/21/19 Range/Units 20:25 WBC (4.0-11.0) k/uL RBC (4.30-5.90) m/uL Hgb (13.0-17.5) gm/dL Hct (39.0-53.0) % MCV (80.0-100.0) fL MCH (25.0-35.0) pg MCHC (31.0-37.0) g/dL RDW (11.5-15.5) % Plt Count (150-450) k/uL Neutrophils % (Manual) % Lymphocytes % (Manual) % Monocytes % (Manual) % Neutrophils # (Manual) (1.3-7.7) k/uL Lymphocytes # (Manual) (1.0-4.8) k/uL Monocytes # (Manual) (0-1.0) k/uL Nucleated RBCs (0-0) /100 WBC Manual Slide Review Hypochromasia Poikilocytosis PT (9.0-12.0) sec INR (<1.2) APTT (22.0-30.0) sec Sodium (137-145) mmol/L Potassium (3.5-5.1) mmol/L Chloride (98-107) mmol/L Carbon Dioxide (22-30) mmol/L Anion Gap mmol/L BUN (9-20) mg/dL Creatinine (0.66-1.25) mg/dL Est GFR (CKD-EPI)AfAm (>60 ml/min/1.73 sqM) Est GFR (CKD-EPI)NonAf (>60 ml/min/1.73 sqM) Glucose (74-99) mg/dL POC Glucose (mg/dL) 94 (75-99) mg/dL POC Glu Rail Signal Designer ID Garrett Michael Plasma Lactic Acid Olivier (0.7-2.0) mmol/L Calcium (8.4-10.2) mg/dL Magnesium (1.6-2.3) mg/dL Total Bilirubin (0.2-1.3) mg/dL AST (17-59) U/L ALT (4-49) U/L Alkaline Phosphatase (38-126) U/L Total Protein (6.3-8.2) g/dL Albumin (3.5-5.0) g/dL Urine Color Urine Appearance (Clear) Urine pH (5.0-8.0) Ur Specific [place] (1.001-1.035) Urine Protein (Negative) Urine Glucose (UA) (Negative) Urine Ketones (Negative) Urine Blood (Negative) Urine Nitrite (Negative) Urine Bilirubin (Negative) Urine Urobilinogen (<2.0) mg/dL Ur Leukocyte Esterase (Negative) Urine RBC (0-5) /hpf Urine WBC (0-5) /hpf Urine Mucus (None) /hpf Critical Care Time Critical Care Time: Yes Total Critical Care Time: 35 Disposition Clinical Impression: Postsurgical fever, Hypocalcemia, Hypokalemia, Hypoalbuminemia Disposition: HOME SELF-CARE Condition: Stable Instructions (If sedation given, give patient instructions): Fever in Adults (ED) Additional Instructions: Alternate between Motrin and Tylenol every 4- 6 hours. Follow-up with Dr. Meehan in the office tomorrow. Take the Levaquin and Flagyl as prescribed. Return to emergency department if any alarming signs or symptoms occur. Prescriptions: metroNIDAZOLE [Flagyl] 500 mg PO TID #21 tab Levofloxacin [Levaquin] 750 mg PO DAILY 7 Days #7 tab Is patient prescribed a controlled substance at d/c from ED?: No Referrals: Monico Mckeon DO [Primary Care Provider] - 1-2 days Ulysses Meehan MD [STAFF PHYSICIAN] - 1-2 days Time of Disposition: 20:53
[2019-12-21] MEDS: MAGNESIUM SULFATE-D5W PMX 1 GM in DEXTROSE/WATER 1 100ML.BAG IVPB SCH ×2 (20:56→22:01)
[2019-12-21] MEDS: POTASSIUM CHLORIDE 10 MEQ in WATER FOR INJECTION 1 100ML.BAG IVPB SCH ×2 (20:56→23:13)
[2019-12-21] MEDS: ALBUMIN HUMAN 25% 50 ML in EMPTY BAG 1 BAG IVPB SCH ×2 (22:16→23:03)
[2019-12-22] MEDS: POTASSIUM CHLORIDE 10 MEQ in WATER FOR INJECTION 1 100ML.BAG IVPB SCH ×3 (02:24→05:27)
[2019-12-22] MEDS ORDERED: PIPERACILLIN-TAZOBACTAM 3.375 GM in SODIUM CHLORIDE 0.9% 100 ML IVPB SCH (03:00)
[2019-12-22 05:58] LABS: Appearance,Urine Clear (Clear); Bilirubin,Urine Negative (Negative); Blood,Urine Trace (Negative); Color,Urine Light Yellow; Glucose,Urine (UA) Negative (Negative); Ketones,Urine Negative (Negative); Leukocyte Esterase,Urine Negative (Negative); Mucus,Urine Rare /hpf; Nitrite,Urine Negative (Negative); Protein,Urine Negative (Negative); RBC,Urine 3 /hpf (0-5); Specific Gravity,Urine 1.009 (1.001-1.035); Urobilinogen,Urine <2.0 mg/dL (<2.0); WBC,Urine <1 /hpf (0-5)
[2019-12-22 06:08] LABS: ALT 12 U/L (4-49); AST 20 U/L (17-59); African American GFR (CKD) >90 (>60 ml/min/1.73 sqM); Alkaline Phosphatase 68 U/L (38-126); Anion Gap 8 mmol/L; Blood Urea Nitrogen 6 mg/dL (9-20); Calcium 8.8 mg/dL (8.4-10.2); Carbon Dioxide 28 mmol/L (22-30); Chloride 105 mmol/L (98-107); Glucose 103 mg/dL (74-99); Magnesium 2.3 mg/dL (1.6-2.3); Non-African American GFR(CKD) >90 (>60 ml/min/1.73 sqM); Potassium 3.8 mmol/L (3.5-5.1); Sodium 141 mmol/L (137-145); Total Bilirubin 1.2 mg/dL (0.2-1.3)
--- NOTE | 2019-12-22 07:56 | P.GSHP ---
History of Present Illness H&P Date: 12/22/19 Chief Complaint: Postoperative fever The 19-year-old male who underwent recent laparoscopic appendectomy. Patient had a fever of 102 at home last night. Patient was admitted through the emergency room last night. He is noted to be hypocalcemic. He states he feels better today. He's been afebrile overnight Past Medical History Past Medical History: No Reported History History of Any Multi-Drug Resistant Organisms: None Reported Past Surgical History: No Surgical Hx Reported, Appendectomy Past Anesthesia/Blood Transfusion Reactions: Unable to Obtain Additional Past Anesthesia/Blood Transfusion Reaction / Comment(s): Pt has never had anesthesia. Past Psychological History: ADD/ADHD Additional Psychological History / Comment(s): Pt resides with his parents. He is independent. Smoking Status: Never smoker Past Alcohol Use History: None Reported Additional Past Alcohol Use History / Comment(s): No Marijuana or illicit drug use. Patient is a student at [employer], working on a nursing degree. He does not have any children. He is currently working at the [employer] for summer employment. Past Drug Use History: None Reported - Past Family History Father Family Medical History: Diabetes Mellitus Additional Family Medical History / Comment(s): Father is alive at age 49 with h istory of diabetes. Mother Family Medical History: No Reported History Additional Family Medical History / Comment(s): Mother is alive at age 49 with no major medical problems. Brother(s) Additional Family Medical History / Comment(s): Patient has 1 brother and 1 sister with no major medical problems. Medications and Allergies Home Medications Medication Instructions Recorded Confirmed Type Clindamycin 1% Solution 1 applic TOPICAL BID 12/19/19 12/21/19 History Clindamycin Phosphate [place] 1% 1 applic TOPICAL BID 12/19/19 12/21/19 History Doxycycline Hyclate 100 mg PO DAILY 12/19/19 12/21/19 History Methylphenidate HCl [[place]] 54 mg PO DAILY 12/19/19 12/21/19 History Hydrocodone/Acetaminophen [[place] 1 tab PO Q6HR PRN #10 tab 12/21/19 12/21/19 Rx 5-325] Levofloxacin [Levaquin] 750 mg PO DAILY 7 Days #7 tab 12/21/19 Rx metroNIDAZOLE [Flagyl] 500 mg PO TID #21 tab 12/21/19 Rx Allergies Allergy/AdvReac Type Severity Reaction Status Date / Time No Known Allergies Allergy Verified 12/21/19 17:43 Surgical - Exam Vital Signs Temp Pulse Resp BP Pulse Ox 102.8 F H 102 H 20 102/63 97 12/21/19 17:21 12/21/19 17:21 12/21/19 17:21 12/21/19 17:21 12/21/19 17:21 - General well developed, well nourished, no distress - Eyes PERRL - ENT normal pinna - Neck no masses - Respiratory normal expansion - Cardiovascular Rhythm: regular - Abdomen Incisions are clean dry intact Abdomen: soft, non tender Results - Labs 12/21/19 18:31 12/22/19 05:41 Abnormal Lab Results - Last 24 Hours (Table) 12/21/19 12/21/19 12/21/19 Range/Units 18:31 18:31 18:31 RBC 3.94 L (4.30-5.90) m/uL Hgb 11.8 L (13.0-17.5) gm/dL Hct 34.2 L (39.0-53.0) % Neutrophils # (Manual) 8.01 H (1.3-7.7) k/uL PT 14.0 H (9.0-12.0) sec INR 1.4 H (<1.2) APTT 38.4 H (22.0-30.0) sec Potassium (3.5-5.1) mmol/L Chloride (98-107) mmol/L Carbon Dioxide (22-30) mmol/L BUN (9-20) mg/dL Creatinine (0.66-1.25) mg/dL Glucose (74-99) mg/dL Calcium (8.4-10.2) mg/dL Magnesium 1.3 L (1.6-2.3) mg/dL AST (17-59) U/L Total Protein (6.3-8.2) g/dL Albumin (3.5-5.0) g/dL Urine Protein (Negative) Urine Ketones (Negative) Urine Blood (Negative) Urine Mucus (None) /hpf 12/21/19 12/21/19 12/22/19 Range/Units 18:40 19:28 05:00 RBC (4.30-5.90) m/uL Hgb (13.0-17.5) gm/dL Hct (39.0-53.0) % Neutrophils # (Manual) (1.3-7.7) k/uL PT (9.0-12.0) sec INR (<1.2) APTT (22.0-30.0) sec Potassium 2.3 L* (3.5-5.1) mmol/L Chloride 116 H (98-107) mmol/L Carbon Dioxide 18 L (22-30) mmol/L BUN 5 L (9-20) mg/dL Creatinine 0.56 L (0.66-1.25) mg/dL Glucose 63 L (74-99) mg/dL Calcium 5.7 L* (8.4-10.2) mg/dL Magnesium (1.6-2.3) mg/dL AST 14 L (17-59) U/L Total Protein 4.4 L (6.3-8.2) g/dL Albumin 2.1 L (3.5-5.0) g/dL Urine Protein Trace H (Negative) Urine Ketones 2+ H (Negative) Urine Blood Small H Trace H (Negative) Urine Mucus Rare H Rare H (None) /hpf 12/22/19 Range/Units 05:41 RBC (4.30-5.90) m/uL Hgb (13.0-17.5) gm/dL Hct (39.0-53.0) % Neutrophils # (Manual) (1.3-7.7) k/uL PT (9.0-12.0) sec INR (<1.2) APTT (22.0-30.0) sec Potassium (3.5-5.1) mmol/L Chloride (98-107) mmol/L Carbon Dioxide (22-30) mmol/L BUN 6 L (9-20) mg/dL Creatinine (0.66-1.25) mg/dL Glucose 103 H (74-99) mg/dL Calcium (8.4-10.2) mg/dL Magnesium (1.6-2.3) mg/dL AST (17-59) U/L Total Protein (6.3-8.2) g/dL Albumin (3.5-5.0) g/dL Urine Protein (Negative) Urine Ketones (Negative) Urine Blood (Negative) Urine Mucus (None) /hpf Diabetes panel 12/21/19 12/22/19 Range/Units 19:28 05:41 Sodium 142 141 (137-145) mmol/L Potassium 2.3 L* 3.8 (3.5-5.1) mmol/L Chloride 116 H 105 (98-107) mmol/L Carbon Dioxide 18 L 28 (22-30) mmol/L BUN 5 L 6 L (9-20) mg/dL Creatinine 0.56 L 0.86 (0.66-1.25) mg/dL Glucose 63 L 103 H (74-99) mg/dL Calcium 5.7 L* 8.8 (8.4-10.2) mg/dL AST 14 L 20 (17-59) U/L ALT 7 12 (4-49) U/L Alkaline Phosphatase 39 68 (38-126) U/L Total Protein 4.4 L 7.0 (6.3-8.2) g/dL Albumin 2.1 L 4.0 (3.5-5.0) g/dL Calcium panel 12/21/19 12/22/19 Range/Units 19:28 05:41 Calcium 5.7 L* 8.8 (8.4-10.2) mg/dL Albumin 2.1 L 4.0 (3.5-5.0) g/dL Pituitary panel 12/21/19 12/22/19 Range/Units 19:28 05:41 Sodium 142 141 (137-145) mmol/L Potassium 2.3 L* 3.8 (3.5-5.1) mmol/L Chloride 116 H 105 (98-107) mmol/L Carbon Dioxide 18 L 28 (22-30) mmol/L BUN 5 L 6 L (9-20) mg/dL Creatinine 0.56 L 0.86 (0.66-1.25) mg/dL Glucose 63 L 103 H (74-99) mg/dL Calcium 5.7 L* 8.8 (8.4-10.2) mg/dL Adrenal panel 12/21/19 12/22/19 Range/Units 19:28 05:41 Sodium 142 141 (137-145) mmol/L Potassium 2.3 L* 3.8 (3.5-5.1) mmol/L Chloride 116 H 105 (98-107) mmol/L Carbon Dioxide 18 L 28 (22-30) mmol/L BUN 5 L 6 L (9-20) mg/dL Creatinine 0.56 L 0.86 (0.66-1.25) mg/dL Glucose 63 L 103 H (74-99) mg/dL Calcium 5.7 L* 8.8 (8.4-10.2) mg/dL Total Bilirubin 0.7 1.2 (0.2-1.3) mg/dL AST 14 L 20 (17-59) U/L ALT 7 12 (4-49) U/L Alkaline Phosphatase 39 68 (38-126) U/L Total Protein 4.4 L 7.0 (6.3-8.2) g/dL Albumin 2.1 L 4.0 (3.5-5.0) g/dL Assessment and Plan Assessment: Postoperative fever Status post laparoscopic appendectomy. Patient will continue receive IV antibiotics. He'll be observed today.
[2019-12-22 08:34] VITALS: BP 116/57; PULSE 76; RESP 16; TEMP 99.3
[2019-12-22] MEDS ORDERED: PANTOPRAZOLE 40 MG/10 ML VIAL IV SCH (09:00)
--- NOTE | 2019-12-22 10:01 | P.GSCN ---
History of Present Illness Consult date: 12/22/19 History of present illness: Chief Complaint: Postoperative fever The 19-year-old male who underwent recent laparoscopic appendectomy. Patient h ad a fever of 102 at home last night. Patient was admitted through the emergency room last night. He is noted to be hypocalcemic. He states he feels better today. He's been afebrile overnight Past Medical History Past Medical History: No Reported History History of Any Multi-Drug Resistant Organisms: None Reported Past Surgical History: No Surgical Hx Reported, Appendectomy Past Anesthesia/Blood Transfusion Reactions: Unable to Obtain Additional Past Anesthesia/Blood Transfusion Reaction / Comment(s): Pt has never had anesthesia. Past Psychological History: ADD/ADHD Additional Psychological History / Comment(s): Pt resides with his parents. He is independent. Smoking Status: Never smoker Past Alcohol Use History: None Reported Additional Past Alcohol Use History / Comment(s): No Marijuana or illicit drug use. Patient is a student at [employer], working on a nursing degree. He does not have any children. He is currently working at the [employer] for summer employment. Past Drug Use History: None Reported - Past Family History Father Family Medical History: Diabetes Mellitus Additional Family Medical History / Comment(s): Father is alive at age 49 with history of diabetes. Mother Family Medical History: No Reported History Additional Family Medical History / Comment(s): Mother is alive at age 49 with no major medical problems. Brother(s) Additional Family Medical History / Comment(s): Patient has 1 brother and 1 sister with no major medical problems. Medications and Allergies Home Medications Medication Instructions Recorded Confirmed Type Clindamycin 1% Solution 1 applic TOPICAL BID 12/19/19 12/21/19 History Clindamycin Phosphate [place] 1% 1 applic TOPICAL BID 12/19/19 12/21/19 History Doxycycline Hyclate 100 mg PO DAILY 12/19/19 12/21/19 History Methylphenidate HCl [Concerta] 54 mg PO DAILY 12/19/19 12/21/19 History Hydrocodone/Acetaminophen [[place] 1 tab PO Q6HR PRN #10 tab 12/21/19 12/21/19 Rx 5-325] Levofloxacin [Levaquin] 750 mg PO DAILY 7 Days #7 tab 12/21/19 Rx metroNIDAZOLE [Flagyl] 500 mg PO TID #21 tab 12/21/19 Rx Allergies Allergy/AdvReac Type Severity Reaction Status Date / Time No Known Allergies Allergy Verified 12/21/19 17:43 Surgical - Exam Vital Signs Temp Pulse Resp BP Pulse Ox 102.8 F H 102 H 20 102/63 97 12/21/19 17:21 12/21/19 17:21 12/21/19 17:21 12/21/19 17:21 12/21/19 17:21 - General well developed, well nourished, no distress - Eyes PERRL - ENT normal pinna - Neck no masses - Respiratory normal expansion - Cardiovascular Rhythm: regular - Abdomen Incisions are clean dry intact Abdomen: soft, non tender Results - Labs 12/21/19 18:31 12/22/19 05:41 Abnormal Lab Results - Last 24 Hours (Table) 12/21/19 12/21/19 12/21/19 Range/Units 18:31 18:31 18:31 RBC 3.94 L (4.30-5.90) m/uL Hgb 11.8 L (13.0-17.5) gm/dL Hct 34.2 L (39.0-53.0) % Neutrophils # (Manual) 8.01 H (1.3-7.7) k/uL PT 14.0 H (9.0-12.0) sec INR 1.4 H (<1.2) APTT 38.4 H (22.0-30.0) sec Potassium (3.5-5.1) mmol/L Chloride (98-107) mmol/L Carbon Dioxide (22-30) mmol/L BUN (9-20) mg/dL Creatinine (0.66-1.25) mg/dL Glucose (74-99) mg/dL Calcium (8.4-10.2) mg/dL Magnesium 1.3 L (1.6-2.3) mg/dL AST (17-59) U/L Total Protein (6.3-8.2) g/dL Albumin (3.5-5.0) g/dL Urine Protein (Negative) Urine Ketones (Negative) Urine Blood (Negative) Urine Mucus (None) /hpf 12/21/19 12/21/19 12/22/19 Range/Units 18:40 19:28 05:00 RBC (4.30-5.90) m/uL Hgb (13.0-17.5) gm/dL Hct (39.0-53.0) % Neutrophils # (Manual) (1.3-7.7) k/uL PT (9.0-12.0) sec INR (<1.2) APTT (22.0-30.0) sec Potassium 2.3 L* (3.5-5.1) mmol/L Chloride 116 H (98-107) mmol/L Carbon Dioxide 18 L (22-30) mmol/L BUN 5 L (9-20) mg/dL Creatinine 0.56 L (0.66-1.25) mg/dL Glucose 63 L (74-99) mg/dL Calcium 5.7 L* (8.4-10.2) mg/dL Magnesium (1.6-2.3) mg/dL AST 14 L (17-59) U/L Total Protein 4.4 L (6.3-8.2) g/dL Albumin 2.1 L (3.5-5.0) g/dL Urine Protein Trace H (Negative) Urine Ketones 2+ H (Negative) Urine Blood Small H Trace H (Negative) Urine Mucus Rare H Rare H (None) /hpf 12/22/19 Range/Units 05:41 RBC (4.30-5.90) m/uL Hgb (13.0-17.5) gm/dL Hct (39.0-53.0) % Neutrophils # (Manual) (1.3-7.7) k/uL PT (9.0-12.0) sec INR (<1.2) APTT (22.0-30.0) sec Potassium (3.5-5.1) mmol/L Chloride (98-107) mmol/L Carbon Dioxide (22-30) mmol/L BUN 6 L (9-20) mg/dL Creatinine (0.66-1.25) mg/dL Glucose 103 H (74-99) mg/dL Calcium (8.4-10.2) mg/dL Magnesium (1.6-2.3) mg/dL AST (17-59) U/L Total Protein (6.3-8.2) g/dL Albumin (3.5-5.0) g/dL Urine Protein (Negative) Urine Ketones (Negative) Urine Blood (Negative) Urine Mucus (None) /hpf Diabetes panel 12/21/19 12/22/19 Range/Units 19:28 05:41 Sodium 142 141 (137-145) mmol/L Potassium 2.3 L* 3.8 (3.5-5.1) mmol/L Chloride 116 H 105 (98-107) mmol/L Carbon Dioxide 18 L 28 (22-30) mmol/L BUN 5 L 6 L (9-20) mg/dL Creatinine 0.56 L 0.86 (0.66-1.25) mg/dL Glucose 63 L 103 H (74-99) mg/dL Calcium 5.7 L* 8.8 (8.4-10.2) mg/dL AST 14 L 20 (17-59) U/L ALT 7 12 (4-49) U/L Alkaline Phosphatase 39 68 (38-126) U/L Total Protein 4.4 L 7.0 (6.3-8.2) g/dL Albumin 2.1 L 4.0 (3.5-5.0) g/dL Calcium panel 12/21/19 12/22/19 Range/Units 19:28 05:41 Calcium 5.7 L* 8.8 (8.4-10.2) mg/dL Albumin 2.1 L 4.0 (3.5-5.0) g/dL Pituitary panel 12/21/19 12/22/19 Range/Units 19:28 05:41 Sodium 142 141 (137-145) mmol/L Potassium 2.3 L* 3.8 (3.5-5.1) mmol/L Chloride 116 H 105 (98-107) mmol/L Carbon Dioxide 18 L 28 (22-30) mmol/L BUN 5 L 6 L (9-20) mg/dL Creatinine 0.56 L 0.86 (0.66-1.25) mg/dL Glucose 63 L 103 H (74-99) mg/dL Calcium 5.7 L* 8.8 (8.4-10.2) mg/dL Adrenal panel 12/21/19 12/22/19 Range/Units 19:28 05:41 Sodium 142 141 (137-145) mmol/L Potassium 2.3 L* 3.8 (3.5-5.1) mmol/L Chloride 116 H 105 (98-107) mmol/L Carbon Dioxide 18 L 28 (22-30) mmol/L BUN 5 L 6 L (9-20) mg/dL Creatinine 0.56 L 0.86 (0.66-1.25) mg/dL Glucose 63 L 103 H (74-99) mg/dL Calcium 5.7 L* 8.8 (8.4-10.2) mg/dL Total Bilirubin 0.7 1.2 (0.2-1.3) mg/dL AST 14 L 20 (17-59) U/L ALT 7 12 (4-49) U/L Alkaline Phosphatase 39 68 (38-126) U/L Total Protein 4.4 L 7.0 (6.3-8.2) g/dL Albumin 2.1 L 4.0 (3.5-5.0) g/dL Assessment and Plan Assessment: Postoperative fever Status post laparoscopic appendectomy. Patient will continue receive IV antibiotics. He'll be observed today. Past Medical History Past Medical History: No Reported History History of Any Multi-Drug Resistant Organisms: None Reported Past Surgical History: No Surgical Hx Reported, Appendectomy Past Anesthesia/Blood Transfusion Reactions: Unable to Obtain Additional Past Anesthesia/Blood Transfusion Reaction / Comm: Pt has never had anesthesia. Past Psychological History: ADD/ADHD Additional Psychological History / Comment(s): Pt resides with his parents. He is independent. Smoking Status: Never smoker Past Alcohol Use History: None Reported Additional Past Alcohol Use History / Comment(s): No Marijuana or illicit drug use. Patient is a student at [employer], working on a nursing degree. He does not have any children. He is currently working at the [employer] for summer employment. Past Drug Use History: None Reported - Past Family History Father Family Medical History: Diabetes Mellitus Additional Family Medical History / Comment(s): Father is alive at age 49 with history of diabetes. Mother Family Medical History: No Reported History Additional Family Medical History / Comment(s): Mother is alive at age 49 with no major medical problems. Brother(s) Additional Family Medical History / Comment(s): Patient has 1 brother [address] with no major medical problems. Medications and Allergies Home Medications Medication Instructions Recorded Confirmed Type Clindamycin 1% Solution 1 applic TOPICAL BID 12/19/19 12/21/19 History Clindamycin Phosphate Pledgets 1% 1 applic TOPICAL BID 12/19/19 12/21/19 History Doxycycline Hyclate 100 mg PO DAILY 12/19/19 12/21/19 History Methylphenidate HCl [Concerta] 54 mg PO DAILY 12/19/19 12/21/19 History Hydrocodone/Acetaminophen [[place] 1 tab PO Q6HR PRN #10 tab 12/21/19 12/21/19 Rx 5-325] Levofloxacin [Levaquin] 750 mg PO DAILY 7 Days #7 tab 12/21/19 Rx metroNIDAZOLE [Flagyl] 500 mg PO TID #21 tab 12/21/19 Rx Allergies Allergy/AdvReac Type Severity Reaction Status Date / Time No Known Allergies Allergy Verified 12/21/19 17:43 Surgical - Exam Vital Signs Temp Pulse Resp BP Pulse Ox 102.8 F H 102 H 20 102/63 97 12/21/19 17:21 12/21/19 17:21 12/21/19 17:21 12/21/19 17:21 12/21/19 17:21 Results - Labs 12/21/19 18:31 12/22/19 05:41 Abnormal Lab Results - Last 24 Hours (Table) 12/21/19 12/21/19 12/21/19 Range/Units 18:31 18:31 18:31 RBC 3.94 L (4.30-5.90) m/uL Hgb 11.8 L (13.0-17.5) gm/dL Hct 34.2 L (39.0-53.0) % Neutrophils # (Manual) 8.01 H (1.3-7.7) k/uL PT 14.0 H (9.0-12.0) sec INR 1.4 H (<1.2) APTT 38.4 H (22.0-30.0) sec Potassium (3.5-5.1) mmol/L Chloride (98-107) mmol/L Carbon Dioxide (22-30) mmol/L BUN (9-20) mg/dL Creatinine (0.66-1.25) mg/dL Glucose (74-99) mg/dL Calcium (8.4-10.2) mg/dL Magnesium 1.3 L (1.6-2.3) mg/dL AST (17-59) U/L Total Protein (6.3-8.2) g/dL Albumin (3.5-5.0) g/dL Urine Protein (Negative) Urine Ketones (Negative) Urine Blood (Negative) Urine Mucus (None) /hpf 12/21/19 12/21/19 12/22/19 Range/Units 18:40 19:28 05:00 RBC (4.30-5.90) m/uL Hgb (13.0-17.5) gm/dL Hct (39.0-53.0) % Neutrophils # (Manual) (1.3-7.7) k/uL PT (9.0-12.0) sec INR (<1.2) APTT (22.0-30.0) sec Potassium 2.3 L* (3.5-5.1) mmol/L Chloride 116 H (98-107) mmol/L Carbon Dioxide 18 L (22-30) mmol/L BUN 5 L (9-20) mg/dL Creatinine 0.56 L (0.66-1.25) mg/dL Glucose 63 L (74-99) mg/dL Calcium 5.7 L* (8.4-10.2) mg/dL Magnesium (1.6-2.3) mg/dL AST 14 L (17-59) U/L Total Protein 4.4 L (6.3-8.2) g/dL Albumin 2.1 L (3.5-5.0) g/dL Urine Protein Trace H (Negative) Urine Ketones 2+ H (Negative) Urine Blood Small H Trace H (Negative) Urine Mucus Rare H Rare H (None) /hpf 12/22/19 Range/Units 05:41 RBC (4.30-5.90) m/uL Hgb (13.0-17.5) gm/dL Hct (39.0-53.0) % Neutrophils # (Manual) (1.3-7.7) k/uL PT (9.0-12.0) sec INR (<1.2) APTT (22.0-30.0) sec Potassium (3.5-5.1) mmol/L Chloride (98-107) mmol/L Carbon Dioxide (22-30) mmol/L BUN 6 L (9-20) mg/dL Creatinine (0.66-1.25) mg/dL Glucose 103 H (74-99) mg/dL Calcium (8.4-10.2) mg/dL Magnesium (1.6-2.3) mg/dL AST (17-59) U/L Total Protein (6.3-8.2) g/dL Albumin (3.5-5.0) g/dL Urine Protein (Negative) Urine Ketones (Negative) Urine Blood (Negative) Urine Mucus (None) /hpf Diabetes panel 12/21/19 12/22/19 Range/Units 19:28 05:41 Sodium 142 141 (137-145) mmol/L Potassium 2.3 L* 3.8 (3.5-5.1) mmol/L Chloride 116 H 105 (98-107) mmol/L Carbon Dioxide 18 L 28 (22-30) mmol/L BUN 5 L 6 L (9-20) mg/dL Creatinine 0.56 L 0.86 (0.66-1.25) mg/dL Glucose 63 L 103 H (74-99) mg/dL Calcium 5.7 L* 8.8 (8.4-10.2) mg/dL AST 14 L 20 (17-59) U/L ALT 7 12 (4-49) U/L Alkaline Phosphatase 39 68 (38-126) U/L Total Protein 4.4 L 7.0 (6.3-8.2) g/dL Albumin 2.1 L 4.0 (3.5-5.0) g/dL Calcium panel 12/21/19 12/22/19 Range/Units 19:28 05:41 Calcium 5.7 L* 8.8 (8.4-10.2) mg/dL Albumin 2.1 L 4.0 (3.5-5.0) g/dL Pituitary panel 12/21/19 12/22/19 Range/Units 19:28 05:41 Sodium 142 141 (137-145) mmol/L Potassium 2.3 L* 3.8 (3.5-5.1) mmol/L Chloride 116 H 105 (98-107) mmol/L Carbon Dioxide 18 L 28 (22-30) mmol/L BUN 5 L 6 L (9-20) mg/dL Creatinine 0.56 L 0.86 (0.66-1.25) mg/dL Glucose 63 L 103 H (74-99) mg/dL Calcium 5.7 L* 8.8 (8.4-10.2) mg/dL Adrenal panel 12/21/19 12/22/19 Range/Units 19:28 05:41 Sodium 142 141 (137-145) mmol/L Potassium 2.3 L* 3.8 (3.5-5.1) mmol/L Chloride 116 H 105 (98-107) mmol/L Carbon Dioxide 18 L 28 (22-30) mmol/L BUN 5 L 6 L (9-20) mg/dL Creatinine 0.56 L 0.86 (0.66-1.25) mg/dL Glucose 63 L 103 H (74-99) mg/dL Calcium 5.7 L* 8.8 (8.4-10.2) mg/dL Total Bilirubin 0.7 1.2 (0.2-1.3) mg/dL AST 14 L 20 (17-59) U/L ALT 7 12 (4-49) U/L Alkaline Phosphatase 39 68 (38-126) U/L Total Protein 4.4 L 7.0 (6.3-8.2) g/dL Albumin 2.1 L 4.0 (3.5-5.0) g/dL
--- NOTE | 2019-12-22 14:14 | P.HPIM ---
History of Present Illness H&P Date: 12/22/19 Chief Complaint: fever HISTORY AND PHYSICAL AND DISCHARGE SUMMARY: This is a 18-year-old male patient of Dr. Mckeon with past medical history of ADHD, chronic acne. On December 18, Dr. Meehan performed laparoscopic appendectomy for acute appendicitis. Patient has not had no postop complications. His discharge was delayed by 1 day due to pain control and then was discharged home. Patient return to the emergency center yesterday with complaints of fever and abdominal pain. He denies having any nausea vomiting. At the time of our evaluation. He states he is feeling much better. He states he did not sleep very well because of his IV fluids. He states he didn't feel like eating this morning. After discharge, patient did not obtain antibiotics as they were called into his pharmacy after hours. He did receive prescription for [place] only. Patient presented with fever of 102.8, WBC 10.4, hemoglobin 11.8. Potassium was 2.3, chloride 116, CO2 18, BUN 5 and creatinine 2.56, blood sugar 63. Lactic acid 0.7. Liver function tests normal. Magnesium 1.3. EKG sinus rhythm with no acute changes. CAT scan of the abdomen and pelvis revealed no new or acute finding. Chest x-ray shows no acute process. Urinalysis was cl ear with nitrate and leukoesterase negative. Trace blood. Patient did not have any further documented fevers. Repeat lab work this morning revealed potassium of 3.8, chloride 105, CO2 28, BUN 6 and creatinine 0.86.patient was seen by Dr. Meehan. Patient has been informed the prescriptions for antibiotic should be bleeding at his pharmacy which were sent on last admission. Patient will take those to completion. He has been instructed to hold doxycycline while on Levaquin and Flagyl. Patient will be discharged home today in stable condition. Review Of Systems: Constitutional: Reports fever, no chills, no night sweats. No weight change. No weakness, fatigue or lethargy. No daytime sleepiness. EENT: No headache. No blurred vision or double vision, no loss of vision. No loss of Hearing, no ringing in the ears, no dizziness. No nasal drainage or congestion. No epistaxis. No sore throat. Lungs: No shortness of breath, cough, no sputum production. No wheezing. Cardiovascular: No chest pain, no lower extremity edema. No palpitations. No paroxysmal nocturnal dyspnea. No orthopnea. No lightheadedness or dizziness. No syncopal episodes. Abdominal: Denies abdominal discomfort No nausea, vomiting. No diarrhea. No constipation. No bloody or tarry stools. No loss of appetite. Genitourinary: No dysuria, increased frequency, urgency. No urinary retention. Musculoskeletal: No myalgias. No muscle weakness, no gait dysfunction, no frequent falls. No back pain. No neck pain. Integumentary: No wounds, no lesions. No rash or pruritus. No unusual bruising. No change in hair or nails. Neurologic: No aphasia. No facial droop. No change in mentation. No head injury. No headache. No paralysis. No paresthesia. Psychiatric: No depression. No anxiety. No mood swings. Endocrine: No abnormal blood sugars. No weight change. No excessive sweating or thirst. No cold intolerance. Physical examination Gen: This is a 18-year-old male resting in bed in no acute ditress. HEENT: Head is atraumatic, normocephalic. Pupils equal, round. Sclerae is anicteric. NECK: Supple. No JVD. No lymphadenopathy. No thyromegaly. LUNGS: Clear to auscultation. No wheezes or rhonchi. No intercostal retractions. HEART: Regular rate and rhythm. No murmur. ABDOMEN: Soft. Bowel sounds are present. No masses. No tenderness. Puncture sites have no signs of infection. No significant drainage or erythema. EXTREMITIES: No pedal edema. No calf tenderness. Dorsalis pedis +2 bilaterally. NEUROLOGICAL: Patient is awake, alert and oriented x3. Cranial nerves 2 through 12 are grossly intact. Assessment and plan 1. Fever of unclear etiology. All testing has been negative. Patient will complete course of antibiotics sent to his pharmacy on previous admission. 2. Electrolyte abnormalities with hypokalemia, hypochloremia, hypomagnesemia. Improved. Status post replacement. 3. Metabolic acidosis, resolved with IV fluids. 4. Recent admission for acute appendicitis status post laparoscopic appendectomy. Continue [place] or Tylenol for pain. 5. History of ADHD, stable. 6. History of acne, stable. 7. COVID-19 infection not present. Patient placed as Observation status. Discharge plan: home Discharge Medication List Clindamycin 1% Solution 1 applic TOPICAL BID 12/19/19 [History] Clindamycin Phosphate Pledgets 1% 1 applic TOPICAL BID 12/19/19 [History] Doxycycline Hyclate 100 mg PO DAILY 12/19/19 [History] Methylphenidate HCl [Concerta] 54 mg PO DAILY 12/19/19 [History] Hydrocodone/Acetaminophen [[place] 5-325] 1 tab PO Q6HR PRN #10 tab 12/21/19 [Rx] Levofloxacin [Levaquin] 750 mg PO DAILY 7 Days #7 tab 12/21/19 [Rx] metroNIDAZOLE [Flagyl] 500 mg PO TID #21 tab 12/21/19 [Rx] Impression and plan of care have been directed as dictated by the signing physician. Mary Floyd nurse practitioner acting as scribe for signing physician. Past Medical History Past Medical History: No Reported History History of Any Multi-Drug Resistant Organisms: None Reported Past Surgical History: No Surgical Hx Reported, Appendectomy Past Anesthesia/Blood Transfusion Reactions: Unable to Obtain Additional Past Anesthesia/Blood Transfusion Reaction / Comment(s): Pt has never had anesthesia. Past Psychological History: ADD/ADHD Additional Psychological History / Comment(s): Pt resides with his parents. He is independent. Smoking Status: Never smoker Past Alcohol Use History: None Reported Additional Past Alcohol Use History / Comment(s): No Marijuana or illicit drug use. Patient is a student at [employer], working on a nursing degree. He does not have any children. He is currently working at the [employer] for summer employment. Past Drug Use History: None Reported - Past Family History Father Family Medical History: Diabetes Mellitus Additional Family Medical History / Comment(s): Father is alive at age 49 with history of diabetes. Mother Family Medical History: No Reported History Additional Family Medical History / Comment(s): Mother is alive at age 49 with no major medical problems. Brother(s) Additional Family Medical History / Comment(s): Patient has 1 brother and 1 sister with no major medical problems. Medications and Allergies Home Medications Medication Instructions Recorded Confirmed Type Clindamycin 1% Solution 1 applic TOPICAL BID 12/19/19 12/21/19 History Clindamycin Phosphate Pledgets 1% 1 applic TOPICAL BID 12/19/19 12/21/19 History Doxycycline Hyclate 100 mg PO DAILY 12/19/19 12/21/19 History Methylphenidate HCl [Concerta] 54 mg PO DAILY 12/19/19 12/21/19 History Hydrocodone/Acetaminophen [[place] 1 tab PO Q6HR PRN #10 tab 12/21/19 12/21/19 Rx 5-325] Levofloxacin [Levaquin] 750 mg PO DAILY 7 Days #7 tab 12/21/19 Rx metroNIDAZOLE [Flagyl] 500 mg PO TID #21 tab 12/21/19 Rx Allergies Allergy/AdvReac Type Severity Reaction Status Date / Time No Known Allergies Allergy Verified 12/21/19 17:43 Physical Exam Vitals: Vital Signs Temp Pulse Resp BP Pulse Ox 12/21/19 22:30 77 18 117/64 98 12/21/19 19:59 99.6 F 73 18 119/73 97 12/21/19 17:32 102.8 F H 12/21/19 17:21 102.8 F H 102 H 20 102/63 97 Intake and Output 12/21/19 12/22/19 12/22/19 22:59 06:59 14:59 Intake Total 980 Balance 980 Intake: Intake, IV Titration 480 Amount Albumin Human 25% 50 ml 50 In Empty Bag 1 bag @ 50 mls/hr IVPB Q1H [facility] Rx#: [id number] Piperacillin-Tazobactam 3 100 .375 gm In Sodium Chloride 0.9% 100 ml @ 25 mls/hr IVPB Q8H [facility] Rx#: [id number] Potassium Chloride 10 meq 230 In Water For Injection 1 100ml.bag @ 100 mls/hr IVPB Q1HR [facility] Rx#: [id number] metroNIDAZOLE-NS PMX 500 100 mg In Saline 1 100ml.bag @ 100 mls/hr IVPB [facility] Rx#:[id number] Oral 500 Other: Voiding Method Toilet Weight 83.915 kg Results CBC & Chem 7: 12/21/19 18:31 12/22/19 05:41 Labs: Abnormal Lab Results - Last 24 Hours (Table) 12/21/19 12/21/19 12/21/19 Range/Units 18:31 18:31 18:31 RBC 3.94 L (4.30-5.90) m/uL Hgb 11.8 L (13.0-17.5) gm/dL Hct 34.2 L (39.0-53.0) % Neutrophils # (Manual) 8.01 H (1.3-7.7) k/uL PT 14.0 H (9.0-12.0) sec INR 1.4 H (<1.2) APTT 38.4 H (22.0-30.0) sec Potassium (3.5-5.1) mmol/L Chloride (98-107) mmol/L Carbon Dioxide (22-30) mmol/L BUN (9-20) mg/dL Creatinine (0.66-1.25) mg/dL Glucose (74-99) mg/dL Calcium (8.4-10.2) mg/dL Magnesium 1.3 L (1.6-2.3) mg/dL AST (17-59) U/L Total Protein (6.3-8.2) g/dL Albumin (3.5-5.0) g/dL Urine Protein (Negative) Urine Ketones (Negative) Urine Blood (Negative) Urine Mucus (None) /hpf 12/21/19 12/21/19 12/22/19 Range/Units 18:40 19:28 05:00 RBC (4.30-5.90) m/uL Hgb (13.0-17.5) gm/dL Hct (39.0-53.0) % Neutrophils # (Manual) (1.3-7.7) k/uL PT (9.0-12.0) sec INR (<1.2) APTT (22.0-30.0) sec Potassium 2.3 L* (3.5-5.1) mmol/L Chloride 116 H (98-107) mmol/L Carbon Dioxide 18 L (22-30) mmol/L BUN 5 L (9-20) mg/dL Creatinine 0.56 L (0.66-1.25) mg/dL Glucose 63 L (74-99) mg/dL Calcium 5.7 L* (8.4-10.2) mg/dL Magnesium (1.6-2.3) mg/dL AST 14 L (17-59) U/L Total Protein 4.4 L (6.3-8.2) g/dL Albumin 2.1 L (3.5-5.0) g/dL Urine Protein Trace H (Negative) Urine Ketones 2+ H (Negative) Urine Blood Small H Trace H (Negative) Urine Mucus Rare H Rare H (None) /hpf 12/22/19 Range/Units 05:41 RBC (4.30-5.90) m/uL Hgb (13.0-17.5) gm/dL Hct (39.0-53.0) % Neutrophils # (Manual) (1.3-7.7) k/uL PT (9.0-12.0) sec INR (<1.2) APTT (22.0-30.0) sec Potassium (3.5-5.1) mmol/L Chloride (98-107) mmol/L Carbon Dioxide (22-30) mmol/L BUN 6 L (9-20) mg/dL Creatinine (0.66-1.25) mg/dL Glucose 103 H (74-99) mg/dL Calcium (8.4-10.2) mg/dL Magnesium (1.6-2.3) mg/dL AST (17-59) U/L Total Protein (6.3-8.2) g/dL Albumin (3.5-5.0) g/dL Urine Protein (Negative) Urine Ketones (Negative) Urine Blood (Negative) Urine Mucus (None) /hpf Thrombosis Risk Factor Assmnt - Choose All That Apply Any of the Below Risk Factors Present?: Yes Each Factor Represents 1 point: Obesity (BMI >25) Other Risk Factors: No Other congenital or acquired thrombophilia - If yes, enter type in comment: No Thrombosis Risk Factor Assessment Total Risk Factor Score: 1 Thrombosis Risk Factor Assessment Level: Low Risk
== END 2019-12-22 10:11 | disposition home or self-care (01) | DRG 864 ==
LOC: EC 17:17 → 4SSUR 20:45
PROVIDERS: ADMIT Internal Medicine Geriatric Medicine; ATTEND Internal Medicine Geriatric Medicine
DX: R50.82 Postprocedural fever (principal); E87.2 Acidosis; E83.51 Hypocalcemia; E88.09 Other disorders of plasma-protein metabolism, not elsewhere classified; E87.8 Other disorders of electrolyte and fluid balance, not elsewhere classified; E83.42 Hypomagnesemia; E87.6 Hypokalemia; F90.9 Attention-deficit hyperactivity disorder, unspecified type; L70.9 Acne, unspecified; Z11.59 Encounter for screening for other viral diseases; Z90.49 Acquired absence of other specified parts of digestive tract; Z83.3 Family history of diabetes mellitus
CPT/HCPCS: 36415; 71046; 74177; 80053; 81001; 82150; 83605; 83690; 83735; 85025; 85610; 85730; 87040; 88304; 93005; 96361; 96365; 96366; 96367; 96368; 96374; 99285; 99291

== ENCOUNTER → 2020-03-06 | Outpatient (CLI) | payer BC ==
--- NOTE | 2020-03-06 14:00 | ECHOF ---
Referral Reason:R07.89 Chest pain MEASUREMENTS -------- HEIGHT: 182.9 cm WEIGHT: 81.6 kg BP: 120/57 IVSd: 1.0 cm (0.6 - 1.1) LVIDd: 5.6 cm (3.9 - 5.3) LVPWd: 1.0 cm (0.6 - 1.1) EDV(Teich): 156 ml IVSs: 1.6 cm LVIDs: 3.2 cm LVPWs: 1.4 cm %IVS Thck: 60 % ESV(Teich): 42 ml EF(Teich): 73 % %FS: 42 % SV(Teich): 113 ml LA Diam: 3.2 cm (2.7 - 3.8) RVIDd: 2.9 cm (< 3.3) LALs A4C: 5.0 cm LAAs A4C: 16.4 cm LAESV A-L A4C: 46 ml LAESV MOD A4C: 42 ml LALs A2C: 4.7 cm LAAs A2C: 13.1 cm LAESV A-L A2C: 31 ml LAESV MOD A2C: 30 ml LAESV(A-L): 39 ml LAESV Index (A-L): 19.20 ml/m Ao Diam: 3.1 cm (2.0 - 3.7) AV Cusp: 2.5 cm (1.5 - 2.6) EPSS: 1.0 cm MV E Josiah: 1.02 m/s MV DecT: 405 ms MV Dec [place]: 2.5 m/s MV A Josiah: 0.51 m/s MV E/A Ratio: 1.99 MV PHT: 117 ms AV Vmax: 1.44 m/s AV maxP.29 mmHg TR Vmax: 2.18 m/s TR maxP.03 mmHg RAP: 5.00 mmHg RVSP: 24.03 mmHg MV EF SLOPE: 132.68 mm/s (70 - 150) MV EXCURSION: 23.41 mm (> 18.000) FINDINGS -------- Resting bradycardia (HR<60bpm). This was a technically excellent study. The left ventricular size is normal. Left ventricular wall thickness is normal. Overall left vent ricular systolic function is normal with, an EF between 60 - 65 %. The right ventricle is normal in size. Normal LA size by volume 22+/-6 ml/m2. The right atrium is normal in size. Interatrial and interventricular septum intact. The aortic valve is trileaflet and appears structurally normal. The mitral valve is normal. Mild tricuspid regurgitation present. Right ventricular systolic pressure is normal at < 35 mmHg. Trace/mild (physiologic) pulmonic regurgitation. The aortic root size is normal. Normal inferior vena cava with normal inspiratory collapse consistent with estimated right atrial pre ssure of 5 mmHg. There is no pericardial effusion. CONCLUSIONS -------- 1. Resting bradycardia (HR<60bpm). 2. The left ventricular size is normal. 3. Left ventricular wall thickness is normal. 4. Overall left ventricular systolic function is normal with, an EF between 60 - 65 %. 5. Mild tricuspid regurgitation present. 6. Trace/mild (physiologic) pulmonic regurgitation. 7. There is no pericardial effusion. CONTACT CENTER CONSULTANT: Cony Metz RDCS
== END | disposition home or self-care (01) ==
LOC: RADECHMAIN 08:33
PROVIDERS: ATTEND Family Medicine
DX: I08.8 Other rheumatic multiple valve diseases (principal)
CPT/HCPCS: 93306